=== PATIENT | female | born 1940 | race Caucasian/White ===

== ENCOUNTER → 2019-07-20 15:51 | Outpatient (BNVA) | payer MEDICARE, SELFPAY | PROVIDERS: Family Provider Nurse Practitioner; PCP Nurse Practitioner; Visit Provider Nurse Practitioner | DX: E83.52 Hypercalcemia (principal) | CPT/HCPCS: 80048 ==

== ENCOUNTER → 2019-11-15 15:41 | Outpatient (BNVA) | payer MEDICARE, SELFPAY | PROVIDERS: Family Provider Nurse Practitioner; PCP Nurse Practitioner; Visit Provider Nurse Practitioner | DX: I10 Essential (primary) hypertension (principal); F51.04 Psychophysiologic insomnia; E78.5 Hyperlipidemia, unspecified; Z12.39 Encounter for other screening for malignant neoplasm of breast; J30.1 Allergic rhinitis due to pollen | CPT/HCPCS: 80053; 80061 ==

== ENCOUNTER 2020-01-26 09:29 | Outpatient (CLI) | payer MEDICARE, SELFPAY ==
--- NOTE | 2020-01-26 09:00 | MM_ITS ---
WS: [id number] BILATERAL DIGITAL SCREENING MAMMOGRAPHY WITH CAD CLINICAL INFORMATION: screen HISTORY: Screening mammogram. No current complaints. COMPARISON: TECHNIQUE: Bilateral CC and MLO views. FINDINGS: Scattered fibroglandular densities bilaterally. No suspicious focal mass, asymmetry, calcifications, or architectural distortion. No evidence of malignancy. Vascular calcification. Punctate calcificatio ns. MM/[place] [id number] IMPRESSION: BI-RADS: 2-Benign FOLLOW UP: 1 Year Follow-up Recommend return to annual screening mammography.
== END 2020-01-26 09:30 | disposition home or self-care (01) ==
PROVIDERS: PCP Nurse Practitioner; Visit Provider Nurse Practitioner
DX: Z12.31 Encounter for screening mammogram for malignant neoplasm of breast (principal)
CPT/HCPCS: 77067

== ENCOUNTER → 2020-04-27 10:14 | Outpatient (BNVA) | payer MEDICARE, SELFPAY | PROVIDERS: PCP Nurse Practitioner; Visit Provider Nurse Practitioner | DX: I10 Essential (primary) hypertension (principal); F51.04 Psychophysiologic insomnia; E78.5 Hyperlipidemia, unspecified; M19.90 Unspecified osteoarthritis, unspecified site; J30.1 Allergic rhinitis due to pollen; Z23 Encounter for immunization; E83.52 Hypercalcemia | CPT/HCPCS: 80053; 80061; 82310; 83970; 84443 ==

== ENCOUNTER 2020-07-01 16:34 | Emergency (ER) | payer MEDICARE, SELFPAY ==
--- NOTE | 2020-07-01 16:44 | USR_ITS ---
PROCEDURE INFORMATION: Exam: US Duplex Left Lower Extremity Veins, Limited Exam date and time: 07/01/2020 4:46 PM Age: 79 years old Clinical indication: Swelling (edema) of limb; Lower extremity, left; Patient HX: H/o superficial thrombophlebitis TECHNIQUE: Imaging protocol: Real-time Duplex ultrasound of the Left Lower Extremity with 2-D richardson scale, color Doppler flow and spectral waveform analysis with image documentation. Limited exam focused on the left lower extremity veins. Total images: 38 COMPARISON: No relevant prior studies available. FINDINGS: Left deep veins: Examination reveals occlusive chronic deep venous thrombosis from the left greater saphenous vein and left common femoral vein distally to the trifurcation. Soft tissues: Unremarkable. US/CV venous duplex [facility] [id number] IMPRESSION: Examination reveals occlusive chronic deep venous thrombosis from the left greater saphenous vein and left common femoral vein distally to the trifurcation.
[2020-07-01 16:46] VITALS: BP 105/66; BP 128/68; PULSE 101; PULSE 82; RESP 14; RESP 16; TEMP 36.9; O2SAT 97; BMI 34.2
--- NOTE | 2020-07-01 16:47 | ED_ITS ---
HPI - Extremity Problem General: Chief complaint: Extremity Problem,Nontraumatic Stated complaint: left leg swelling Time Seen by Provider: 07/01/20 16:40 Source: patient Mode of arrival: ambulatory Limitations: no limitations History of Present Illness: HPI Narrative: 79-year-old female who states she has been having left leg swelling over the last 5 days. She states she has had superficial clots before but never DVT. She states she does have pain in that leg. Denies any fever. Patient denies any shortness of breath. She did get over Covid roughly 1 month ago. Denies any chest pain or vomiting or diarrhea. Denies any worsening improving factors. Associated symptoms: Deny chest pain, fever(s) or rash Review of Systems Const: Denies: fever(s), chills, body aches or change in appetite Eyes: Denies: blurry vision or eye discomfort ENMT: Denies: throat pain or dental pain Card: Denies: chest pain Resp: Denies: dyspnea GI: Denies: abdominal pain, nausea, vomiting or diarrhea : Denies: dysuria Musc: Reports: extremity swelling; Denies: neck pain or back pain Skin/Breast: Denies: rash Neuro: Denies: headache(s) Psych: Denies: depression Dileep/Lymph: Denies: easy bruising All/Imm: Denies: urticaria PFSH ED PFSH: Medical History (Updated 07/01/20 @ 17:33 by Lucian Nichols MD) HTN, goal below 130/80 Hyperlipidemia, unspecified Osteoarthropathy Surgical History History of back surgery Lumbar History of dilation and curettage History of knee surgery Right History of left breast biopsy History of surgery on left wrist ganglion cyst Family History Other Cancer Heart disease Hypertension Social History Smoking and tobacco status: never smoked Second hand smoke exposure: No Smoking risk assessment/counseling performed?: No Alcohol intake: never Desire information about alcohol rehabilitation?: No Counseling given: No Desire information about substance/drug rehabilitation?: No Counseling given: No Adopted: No Lives independently: Yes Household members: none Housing: House Marital status: / Current occupational status: retired History of recent travel: No Current gender identity: Female Physical Exam Const: COMMON NORMALS: no acute distress, patient oriented x3 and healthy appearing HENMT: COMMON NORMALS: normocephalic and atraumatic HEAD & SCALP: normocephalic and atraumatic Eye: COMMON NORMALS: Equal, round and reactive pupils present and EOMs intact bilaterally PUPIL: Yes Equal, round and reactive pupils present Neck/C-Spine: COMMON NORMALS: full ROM and supple Chest: COMMONS NORMALS: normal inspection of the chest and normal palpation of entire chest wall Resp: COMMON NORMALS: normal respiratory effort, No retractions, No use of accessory muscles and clear to auscultation bilaterally AUSCULTATION: clear to auscultation bilaterally Cardio: COMMON NORMALS: regular rate, regular rhythm and No murmurs present (Cardio) RATE: regular rate RHYTHM: regular rhythm GI: COMMON NORMALS: Normal to inspection, nondistended, normoactive bowel sounds present, Soft to palpation, non-tender and no masses PALPATION: Yes Soft to palpation Extremity: COMMON NORMALS: full ROM NARRATIVE EXTREMITY EXAM: Swelling to left lower calf distal pulses intact Neuro: COMMON NORMALS: patient oriented x3, moves all extremities and no focal motor deficits Psych: COMMON NORMALS: mental status grossly normal, Normal thought process present and cooperative THOUGHT PROCESS: Normal thought process present Skin: COMMON NORMALS: no rashes or lesions noted and no wounds GENERAL SKIN EXAM: no rashes or lesions noted Course Vital Signs: Vital signs: Vital Signs Temperature 98.5 F 07/01/20 16:46 Pulse Rate 81 07/01/20 17:39 Respiratory Rate 16 07/01/20 17:39 Blood Pressure 124/59 07/01/20 17:39 Pulse Oximetry 96 07/01/20 17:39 MDM - Extremity (Nontraumatic) MDM Narrative: Medical decision making narrative: Monie presents here swelling in her left leg. Ultrasound does show DVT. She has no shortness of breath and no signs of pulmonary embolism. Patient will be started on Eliquis and is to follow-up with primary care doctor in 3 to 5 days. She is to return if she has any chest pain shortness of breath or worsening symptoms of her leg. She understands and agrees to plan. Discharge Plan Discharge Patient Disposition: Home Clinical Impression: Deep vein thrombosis of lower extremity Qualifiers: Affected thrombotic vein of extremity: unspecified vein of extremity Chronicity: acute Laterality: left Qualified Code(s): I82.402 - Acute embolism and thrombosis of unspecified deep veins of left lower extremity Condition: Stable Prescriptions: New Eliquis 5 mg tablet 10 mg PO BID 7 Days Qty: 28 RF: 0 Eliquis 5 mg tablet 5 mg PO BID Qty: 30 RF: 0 No Action amlodipine 5 mg tablet 5 mg PO QDAY Qty: 90 RF: 0 citalopram [Celexa] 10 mg tablet 10 mg PO DAILY Qty: 90 RF: 0 furosemide 20 mg tablet 20 mg PO QAM Qty: 90 RF: 0 lisinopril 20 mg tablet 20 mg PO DAILY Qty: 90 RF: 0 lovastatin 10 mg tablet 10 mg PO DAILY Qty: 90 RF: 0 meloxicam 15 mg tablet 15 mg PO DAILY Qty: 90 RF: 0 montelukast [Singulair] 10 mg tablet 10 mg PO DAILY Qty: 90 RF: 0 Discharge Orders: Discharge ED (Routine); Ordered 07/01/20 Ordered By: Lucian Nichols Referrals: Eber Proctor, SKILL TRAINING PROGRAM COORDINATOR-C [Primary Care Provider] - 1-3 days Discharge Diet: Advance as tolerated Discharge Activity: Resume usual activity Patient Instructions: Deep Venous Thrombosis (ED) Coding Level of Care Code ED Ultimate Hoops Referee for Tho Fwtee Exam Comprehensive
[2020-07-01 17:39] VITALS: BP 124/59; PULSE 81; RESP 16; O2SAT 96
== END 2020-07-01 18:18 | disposition home or self-care (01) ==
PROVIDERS: Emergency Provider Emergency Medicine; PCP Nurse Practitioner
DX: I82.402 Acute embolism and thrombosis of unspecified deep veins of left lower extremity (principal); I10 Essential (primary) hypertension; E78.5 Hyperlipidemia, unspecified
CPT/HCPCS: 12345; 93971; 99281; 99282

== ENCOUNTER → 2020-07-10 16:32 | Outpatient (BNVA) | payer MEDICARE, SELFPAY | PROVIDERS: PCP Nurse Practitioner; Visit Provider Nurse Practitioner | DX: I82.412 Acute embolism and thrombosis of left femoral vein (principal) | CPT/HCPCS: 80053; 85025 ==

== ENCOUNTER → 2020-08-14 11:06 | Outpatient (BNVA) | payer MEDICARE, SELFPAY | PROVIDERS: PCP Nurse Practitioner; Visit Provider Nurse Practitioner | DX: D64.9 Anemia, unspecified (principal) | CPT/HCPCS: 85025 ==

== ENCOUNTER 2020-08-28 10:42 | Outpatient (CLI) | payer MEDICARE, SELFPAY ==
--- NOTE | 2020-08-28 10:30 | USCV_ITS ---
Monie Newton Age: 80 Gender: F : 1940 Exam Date: 08/28/2020 11:14 Ordering Phys: Eber Proctor Technologist: Ya Blevins Exam Location: [facility] – [place] Indication: LLE PAIN AND SWELLING HISTORY: Lower extremity swelling. Lower extremity pain. History of deep venous thrombosis. PROCEDURES: Venous duplex imaging was performed in only the left lower extremity. The following venous structures were evaluated: common femoral vein, profunda vein, proximal portion of the greater saphenous vein, superficial femoral vein, and the popliteal vein. In addition, the posterior tibial veins were evaluated. Serial compression, augmentation maneuvers, and spectral Doppler flow evaluation were performed. FINDINGS: + DVT SEEN FROM LEFT CFV TO POP V EDEMA SEEN IN LOWER LEG CONCLUSIONS DVT left common femoral vein to popliteal vein. This is similiar in appearance to 06/2020 Edema left lower leg Gumaro Hart MD (Electronically Signed) Final Date: 28 August 2020 11:48 S
--- NOTE | 2020-08-28 11:15 | XR_ITS ---
WS: [id number] Exam: XR knee LT 3V* [id number] Date/Time of Exam: 08/28/2020 11:15 AM Reason For Exam: I82.412 - Acute embolism and thrombosis of left femoral vein No fracture or dislocation. Mild degenerative change of the medial joint compartment and posterior pa tella. Moderate effusion in the suprapatellar bursa. XR/XR knee LT 3V* [id number] IMPRESSION: 1. No fracture noted. 2. Mild degenerative changes. 3. Joint effusion.
[2020-08-28 12:07] LABS: Uric Acid 4.1 mg/dL (2.4-5.7)
== END 2020-08-28 10:43 | disposition home or self-care (01) ==
LOC: RAD 10:47
PROVIDERS: PCP Nurse Practitioner; Visit Provider Nurse Practitioner
DX: I82.412 Acute embolism and thrombosis of left femoral vein (principal); M25.562 Pain in left knee; M10.9 Gout, unspecified; M25.462 Effusion, left knee; M79.89 Other specified soft tissue disorders; M79.605 Pain in left leg; I82.432 Acute embolism and thrombosis of left popliteal vein
CPT/HCPCS: 73562; 84550; 93971

== ENCOUNTER → 2020-11-28 08:20 | Outpatient (BNVA) | payer MEDICARE, SELFPAY | PROVIDERS: PCP Nurse Practitioner; Visit Provider Nurse Practitioner | DX: I10 Essential (primary) hypertension (principal); E78.5 Hyperlipidemia, unspecified; Z79.899 Other long term (current) drug therapy | CPT/HCPCS: 80053; 85025 ==

== ENCOUNTER → 2021-02-01 08:43 | Outpatient (BNVA) | payer MEDICARE, SELFPAY | PROVIDERS: PCP Nurse Practitioner; Visit Provider Nurse Practitioner | DX: E55.9 Vitamin D deficiency, unspecified (principal); I10 Essential (primary) hypertension | CPT/HCPCS: 80053; 82306; 84443 ==

== ENCOUNTER 2021-02-05 09:22 | Outpatient (CLI) | payer MEDICARE, SELFPAY ==
--- NOTE | 2021-02-05 09:32 | MM_ITS ---
WS: [id number] Bilateral screening digital mammogram, 02/05/2021 Clinical Data: SCREENING Comparison: 01/26/2020, 04/13/2018, 02/27/2017, 03/02/2014, 12/11/2011, 09/19/2009, 09/02/2007, 01/18/2007, . Findings: The breast parenchymal pattern shows fibroglandular tissue No spiculated masses or clustered calcific ations are seen. There are no secondary signs of carcinoma. MM/[place] [id number] Impression: 1. Negative bilateral mammogram unchanged. 2. Recommend annual screening mammograms. BIRADS: 1-Negative FOLLOW UP: 1 Year Follow-up The CAD content checker was used.
--- NOTE | 2021-02-05 10:12 | USCV_ITS ---
Monie Newton Age: 80 Gender: F : 1940 Exam Date: 02/05/2021 10:32 Ordering Phys: Eber Proctor Technologist: Shyla Barton Exam Location: [facility] [place] Indication: ACUTE THROMBUS HISTORY: Lower extremity edema. DVT. PROCEDURES: Comparison:. 08/28/20, 07/01/20. Venous duplex imaging was performed in bilateral lower extremities. The following venous structures were evaluated: common femoral vein, profunda vein, proximal portion of the greater saphenous vein, superficial femoral vein, and the popliteal vein. In addition, the posterior tibial and peroneal trunk were evaluated. FINDINGS: The left CFV and left profunda through popliteal still appears to have thrombus present. Complete occlusion of the vein, unchanged. Residual clot in left GSV. All other veins appear free of thrombus at this time. No right DVT. CONCLUSIONS No change in left lower extremity DVT over several exams. No progression or improvement. No DVT right lower extremity. Dr. Evelyne Perez DO (Electronically Signed) Final Date: 05 February 2021 10:54 S
== END 2021-02-05 09:23 | disposition home or self-care (01) ==
PROVIDERS: PCP Nurse Practitioner; Visit Provider Nurse Practitioner
DX: Z12.31 Encounter for screening mammogram for malignant neoplasm of breast (principal); I82.412 Acute embolism and thrombosis of left femoral vein
CPT/HCPCS: 77067; 93970

== ENCOUNTER 2021-03-07 17:57 | Outpatient (CLI) | payer MEDICARE, SELFPAY | END 2021-03-07 17:58 | disposition home or self-care (01) | PROVIDERS: PCP Nurse Practitioner; Visit Provider Nurse Practitioner | DX: D64.9 Anemia, unspecified (principal) | CPT/HCPCS: 80053; 84443; 85025; 86850; 86900; 86920 ==

== ENCOUNTER → 2021-03-08 09:37 | Day surgery (SDC) | payer MEDICARE, SELFPAY ==
[2021-03-08] VITALS (10 sets, daily range): BP systolic 114–154; BP diastolic 59–96; PULSE 66–130; RESP 18; TEMP 35.8–36.5; O2SAT 96–100; BMI 33.9
--- NOTE | 2021-03-08 11:12 | PC.NURSE ---
Blood was taken back to lab when I was unable to document in the TAR. After issue was resolved and I was able to document Varun went to lab to retrieve the blood a second time.
[2021-03-08] MEDS: sodium chloride 0.9% (100 ml) 100 ML 10 ML ×2 (12:45→12:57)
== END ==
PROVIDERS: PCP Nurse Practitioner; Visit Provider Nurse Practitioner
DX: D64.9 Anemia, unspecified (principal)
CPT/HCPCS: 36430; 86850; 86900; 86920; J2704; P9016

== ENCOUNTER → 2021-03-13 15:39 | Outpatient (BNVA) | payer MEDICARE, SELFPAY | PROVIDERS: PCP Nurse Practitioner; Visit Provider Nurse Practitioner | DX: D64.9 Anemia, unspecified (principal) | CPT/HCPCS: 85025 ==

== ENCOUNTER → 2021-03-18 16:01 | Outpatient (BNVA) | payer MEDICARE, SELFPAY | PROVIDERS: PCP Nurse Practitioner; Visit Provider Nurse Practitioner | DX: D64.9 Anemia, unspecified (principal) | CPT/HCPCS: 85025 ==

== ENCOUNTER → 2021-03-22 10:00 | Outpatient (BNVA) | payer MEDICARE, SELFPAY | PROVIDERS: PCP Nurse Practitioner; Visit Provider Surgery | DX: Z20.822 Contact with and (suspected) exposure to COVID-19 (principal); D64.9 Anemia, unspecified; K92.1 Melena | CPT/HCPCS: 87635 ==

== ENCOUNTER 2021-03-27 07:42 | Day surgery (SDC) | payer MEDICARE, SELFPAY ==
[2021-03-27 08:23] VITALS: BP 138/63; PULSE 88; RESP 18; TEMP 36.2; O2SAT 100
[2021-03-27 08:28] VITALS: BMI 33.9
--- NOTE | 2021-03-27 08:31 | ANES.PREANE2 ---
Pre-Anesthetic Assessment Pre-Anesthetic Assessment: Height/Weight: Height 1.68 m Temp Pulse Resp BP Pulse Ox 97.2 F L 88 18 138/63 100 03/27/21 08:23 03/27/21 08:23 03/27/21 08:23 03/27/21 08:23 03/27/21 08:23 Preop Diagnosis: Anemia associated with black stool Proposed Procedure: Operation Date: 03/27/21 09:00 Proposed Procedures p EGD/colon 19484 20457 D64.9 K92.1(Not Applicable) - Saul Craft MD s Colonoscopy(Not Applicable) - Saul Craft MD Was Beta Syed taken within 24 hours: Yes Was Clonidine taken within 24 hours: N/A Social: Social History: No alcohol and No tobacco Exam: Pre-Anes Outpt Exam: alert, oriented x 3, clear to auscultation bilaterally and regular rate & rhythm Airway: Submandibular: WNL Cervical ROM: WNL MP: 2 Dentition: False CV/HEM: CV/HEM: Anemia, Arrythmia and HTN Metabolic: Metabolic: Hyperlipidemia Musc/skel: Musc/skel: OA/DJD Anesthetic Plan: ASA status: 3 Anesthesia: MAC Risk of > 500 ml blood loss (7ml/kg in children): No PFSH Anesthesia PFSH: Medical History HTN, goal below 130/80 Hyperlipidemia, unspecified Osteoarthropathy Surgical History History of back surgery Lumbar History of dilation and curettage History of knee surgery Right History of left breast biopsy History of surgery on left wrist ganglion cyst Family History Other Cancer Heart disease Hypertension Social History Second hand smoke exposure: No Smoking risk assessment/counseling performed?: No Alcohol intake: never Desire information about alcohol rehabilitation?: No Counseling given: No Desire information about substance/drug rehabilitation?: No Counseling given: No Adopted: No Caregiver/support person: No Lives independently: Yes Household members: none Housing: House Marital status: / Current occupational status: retired Current occupational exposures/hazards: No History of recent travel: No Current gender identity: Female Data Anesthesia Cardiac Studies: No Data to Display
[2021-03-27] MEDS: sodium chloride 0.9% 1,000 ML 30 ML IV (08:38)
--- NOTE | 2021-03-27 09:18 | W.PM.OPSUD ---
Surgery/Procedure H&P Update DATE OF PROCEDURE: March 27, 2021 DATE H&P PERFORMED: 03/21/21 H&P UPDATE INFORMATION: I have reviewed H&P completed within last 30 days, I have examined patient prior to procedure and No changes to prior documentation PREOP DIAGNOSIS: Anemia associated with black stool PRIMARY INDICATION FOR PROCEDURE: The same PLANNED PROCEDURE: Operation Date: 03/27/21 09:00 Proposed Procedures p EGD/colon 63298 08339 D64.9 K92.1(Not Applicable) - Saul Craft MD s Colonoscopy(Not Applicable) - Saul Craft MD
[2021-03-27] MEDS: EPINEPHrine 1 mg/mL INJ XX (09:45)
[2021-03-27 09:58] VITALS: BP 109/59; PULSE 77; RESP 18; TEMP 36.3; O2SAT 95
--- NOTE | 2021-03-27 10:01 | PM.PACU ---
PACU note Post-Anesthesia Exam: awake and vital signs stable Disposition: discharged
[2021-03-27] MEDS: ondansetron 2 mg/ML SDV 2 mL 4 MG IVP (10:09)
[2021-03-27 10:10] VITALS: BP 123/78; PULSE 78; RESP 18; O2SAT 99
[2021-03-27 10:19] VITALS: BP 123/78; PULSE 62; RESP 16; O2SAT 100
--- NOTE | 2021-03-27 10:21 | PC.NURSE ---
Addendum entered by Glenny Montenegro RN 03/27/21 10:33: Pt and family given verbal education and written packet regarding new meds, protonix and carafate. Original Note: Pt c/o nausea post-procedure. Given zofran 4 mg ivp. States relief.
--- NOTE | 2021-03-27 13:53 | ANE.PACU2 ---
Inpatient post-anesthesia follow up: Airway intact: Yes Vital signs: Temperature 97.4 F Pulse Rate 62 Respiratory Rate 16 Blood Pressure 123/78 Pulse Oximetry 100 Oxygen Delivery Me thod Room Air Oxygen Flow Rate Fraction of Inspir ed Oxygen Hydration adequate: Yes Nausea and vomiting: No Pain level: 1 Mental status: Baseline
[2021-03-28 10:47] LABS: H. Pylori / CLO Test Negative
== END 2021-03-27 10:45 | disposition home or self-care (01) ==
PROVIDERS: PCP Nurse Practitioner; Visit Provider Surgery
PROC: 0DJ08ZZ Inspection of Upper Intestinal Tract, Via Natural or Artificial Opening Endoscopic (ICD-10-PCS; CPT 43235; principal; 2021-03-27 09:00)
PROC: 0DJD8ZZ Inspection of Lower Intestinal Tract, Via Natural or Artificial Opening Endoscopic (ICD-10-PCS; CPT 45378; 2021-03-27 09:00)
DX: D64.9 Anemia, unspecified (principal); K92.1 Melena; K64.4 Residual hemorrhoidal skin tags; K21.00 Gastro-esophageal reflux disease with esophagitis, without bleeding; K29.70 Gastritis, unspecified, without bleeding; K25.3 Acute gastric ulcer without hemorrhage or perforation; I10 Essential (primary) hypertension; E78.5 Hyperlipidemia, unspecified; M19.90 Unspecified osteoarthritis, unspecified site
CPT/HCPCS: 43236; 43239; 45378; 87077; 96361; 96374; J0171; J2405; J7030

== ENCOUNTER → 2021-05-17 11:40 | Outpatient (BNVA) | payer MEDICARE, SELFPAY | PROVIDERS: PCP Nurse Practitioner; Visit Provider Surgery | DX: Z01.812 Encounter for preprocedural laboratory examination (principal); Z20.822 Contact with and (suspected) exposure to COVID-19 | CPT/HCPCS: 87635 ==

== ENCOUNTER 2021-05-22 07:50 | Day surgery (SDC) | payer MEDICARE, SELFPAY ==
[2021-05-20 13:53] VITALS: BMI 43.5
--- NOTE | 2021-05-22 08:24 | ANES.PREANE2 ---
Pre-Anesthetic Assessment Pre-Anesthetic Assessment: Height/Weight: Height 1.68 m Weight 122.47 kg Preop Diagnosis: Gastric ulcerS Proposed Procedure: Operation Date: 05/22/21 09:00 Proposed Procedures p EGD 36316 K22.10(Not Applicable) - Saul Craft MD Was Beta Syed taken within 24 hours: Yes Was Clonidine taken within 24 hours: N/A Social: Social History: No alcohol and No tobacco Exam: Pre-Anes Outpt Exam: alert, oriented x 3, clear to auscultation bilaterally and regular rate & rhythm Airway: Submandibular: WNL Cervical ROM: WNL MP: 2 Dentition: False (upper) Pulmonary: Pulmonary: Asthma CV/HEM: CV/HEM: Anemia, Arrythmia and HTN GI: GI: GERD Neuropsych: Neuropsych: Anxiety Anesthetic Plan: ASA status: 3 Anesthesia: MAC Risk of > 500 ml blood loss (7ml/kg in children): No PFSH Anesthesia PFSH: Medical History HTN, goal below 130/80 Hyperlipidemia, unspecified Osteoarthropathy Surgical History History of back surgery Lumbar History of dilation and curettage History of knee surgery Right History of left breast biopsy History of surgery on left wrist ganglion cyst Family History Other Cancer Heart disease Hypertension Social History Second hand smoke exposure: No Smoking risk assessment/counseling performed?: No Alcohol intake: never Desire information about alcohol rehabilitation?: No Counseling given: No Desire information about substance/drug rehabilitation?: No Counseling given: No Adopted: No Caregiver/support person: No Lives independently: Yes Household members: none Housing: House Marital status: / Current occupational status: retired Current occupational exposures/hazards: No History of recent travel: No Current gender identity: Female Data Anesthesia Cardiac Studies: No Data to Display
[2021-05-22 08:26] VITALS: BP 144/84; PULSE 77; RESP 16; TEMP 36.5; O2SAT 99
[2021-05-22] MEDS: sodium chloride 0.9% 1,000 ML 30 ML IV (08:38)
--- NOTE | 2021-05-22 09:30 | W.PM.OPSFHP ---
Same Day Surgery H&P Indication for Procedure/HPI DATE OF PROCEDURE: May 22, 2021 CHIEF COMPLAINT/INDICATIONFOR SURGICAL PROCEDURE: I am here for endoscopy PREOP DIAGNOSIS: Gastric ulcerS PLANNED PROCEDRUE: Operation Date: 05/22/21 09:00 Proposed Procedures p EGD 73127 K22.10(Not Applicable) - Saul Craft MD 04/11/2021 Patient comes today status post EGD and was found to have gastritis and prepyloric gastric ulcers x3. Colonoscopy showed external hemorrhoids. Patient was placed on PPI therapy and Carafate. Patient expresses her concerns to be on chronic anticoagulation. She denies any abdominal pain or bleeding per rectum Interim history 05/22/2021 Patient comes today for repeat diagnostic EGD ROS All systems have been reviewed negative except as per the above or per problem list Medications/Allergies* Home Medications Medication Instructions Recorded Confirmed Type aspirin 81 mg PO DAILY 05/20/21 05/22/21 History Toprol XL 50 mg PO BEDTIME 05/21/21 05/21/21 History alprazolam 0.5 mg PO BID PRN 05/21/21 05/22/21 History lovastatin 10 mg PO BEDTIME 05/21/21 05/22/21 History montelukast [Singulair] 10 mg PO BEDTIME 05/21/21 05/22/21 History olmesartan 20 mg PO DAILY 05/21/21 05/22/21 History Allergies/Adverse Reactions Allergy/AdvReac Type Severity Reaction Status Date / Time pseudoephedrine AdvReac Severe palpation Verified 05/22/21 09:31 Penicillins AdvReac Intermediate heart races Verified 05/22/21 09:31 Current Medications: Generic Name Dose Route Start Last Admin Trade Name Freq PRN Reason Stop Dose Admin Sodium Chloride 1,000 mls @ 30 mls/hr 05/22/21 08:15 05/22/21 08:38 Sodium Chloride 0.9% IV 05/23/21 08:14 30 mls/hr .Q24H SARAH Administration Pertinent History/Comorbid Conditions* Medical History (Updated 03/27/21 @ 10:08 by Saul Craft MD) HTN, goal below 130/80 Hyperlipidemia, unspecified Osteoarthropathy Surgical History (Updated 11/15/19 @ 15:29 by BENJAMIN Valerio) History of back surgery Lumbar History of dilation and curettage History of knee surgery Right History of left breast biopsy History of surgery on left wrist ganglion cyst Family History (Updated 11/14/19 @ 10:50 by DWAYNE Chaudhary) Heart disease Cancer Hypertension Social History Second hand smoke exposure: No Smoking risk assessment/counseling performed?: No Alcohol intake: never Desire information about alcohol rehabilitation?: No Counseling given: No Desire information about substance/drug rehabilitation?: No Counseling given: No Adopted: No Caregiver/support person: No Lives independently: Yes Household members: none Housing: House Marital status: / Current occupational status: retired Current occupational exposures/hazards: No History of recent travel: No Current gender identity: Female Pertinent Exam Findings alert, oriented x 3, regular rate & rhythm and procedure specific exam findings (Abdominal examination nontender nondistended soft) Recommendations Surgery/Procedure today (Diagnostic EGD with possible biopsy) Coding Level of Care Code Acute Copier Repair Technician for Tho Kelly
[2021-05-22 09:51] VITALS: BP 111/75; PULSE 75; RESP 16; TEMP 36.1; O2SAT 94
--- NOTE | 2021-05-22 09:53 | ANE.PACU2 ---
Inpatient post-anesthesia follow up: Airway intact: Yes Vital signs: Temperature 97.7 F Pulse Rate 77 Respiratory Rate 16 Blood Pressure 144/84 Pulse Oximetry 99 Oxygen Delivery Me thod Room Air Oxygen Flow Rate Fraction of Inspir ed Oxygen Hydration adequate: Yes Nausea and vomiting: No Pain level: 1 Mental status: Baseline
[2021-05-22 10:05] VITALS: BP 126/78; PULSE 66; RESP 18; O2SAT 96
== END 2021-05-22 10:15 | disposition home or self-care (01) ==
PROVIDERS: PCP Nurse Practitioner; Visit Provider Surgery
PROC: 0DJ08ZZ Inspection of Upper Intestinal Tract, Via Natural or Artificial Opening Endoscopic (ICD-10-PCS; CPT 43235; principal; 2021-05-22 09:00)
DX: K25.9 Gastric ulcer, unspecified as acute or chronic, without hemorrhage or perforation (principal); K21.00 Gastro-esophageal reflux disease with esophagitis, without bleeding; I10 Essential (primary) hypertension; Z88.0 Allergy status to penicillin
CPT/HCPCS: 43235; 96360; J2704; J7030

== ENCOUNTER → 2021-07-10 08:24 | Day surgery (SDC) | payer MEDICARE, SELFPAY | PROVIDERS: PCP Nurse Practitioner Family; Visit Provider Thoracic Surgery (Cardiothoracic Vascular Surgery) | DX: Z01.818 Encounter for other preprocedural examination (principal) | CPT/HCPCS: 93005 ==

== ENCOUNTER → 2021-07-10 10:20 | Outpatient (BNVA) | payer MEDICARE, SELFPAY | PROVIDERS: PCP Nurse Practitioner Family; Visit Provider Thoracic Surgery (Cardiothoracic Vascular Surgery) | DX: Z20.822 Contact with and (suspected) exposure to COVID-19 (principal); I82.412 Acute embolism and thrombosis of left femoral vein | CPT/HCPCS: 87635 ==

== ENCOUNTER 2021-07-16 06:07 | Day surgery (SDC) | payer MEDICARE, SELFPAY ==
[2021-07-10 09:00] VITALS: BMI 33.0
--- NOTE | 2021-07-10 09:26 | ECG_ITS ---
[facility] Test Date: 2021-07-10 Pat Name: Monie Newton Department: Room: Gender: Female Pharmacology Professor: : 1940 Requested By: Eliseo Echevarria Order Number: [id number] Sabine MD: Sonia Zavaleta M.D. Measurements Intervals Organ Rate: 62 P: 36 VA: 197 QRS: -14 QRSD: 83 T: 43 QT: 397 QTc: 404 Interpretive Statements SINUS RHYTHM LOW QRS VOLTAGE IN PRECORDIAL LEADS [QRS DEFLECTION < 1.0 mV IN CHEST LEADS] MODERATE VOLTAGE CRITERIA FOR LVH, CONSIDER NORMAL VARIANT [MEETS CRITERIA IN ONE OF: R(aVL), S(V1), R(V5), R(V5/V6)+S(V1)] POSSIBLE ANTERIOR MYOCARDIAL INFARCTION , OF INDETERMINATE AGE [30 ms Q WAVE IN V3/V4, OR R < 0.2 mV IN V4] No previous ECG available for comparison Electronically Signed On 07-11-2021 22:04:32 GUEST SERVICE MANAGER by Sonia Zavaleta M.D. [email or web address]
[2021-07-10 09:33] LABS: Add Urine Microscopic? NO; Charge for UA Resulting for Rev
[2021-07-10 09:35] LABS: Basophils # 0.1 10^3/uL (0.0-0.1); Basophils % 1.2 %; Eosinophils # 0.1 10^3/uL (0.0-0.8); Eosinophils % 2.2 %; Hematocrit 40.5 % (37.0-47.0); Hemoglobin 12.8 g/dL (11.5-15.3); Lymphocytes % 33.7 %; Mean Corpuscular HGB Conc 31.6 g/dL (30.0-36.0); Mean Corpuscular Volume 91.8 fl (81-99); Mean Platelet Volume 10.9 fL (7.4-10.4); Monocytes # 0.6 10^3/uL (0.2-0.9); Monocytes % 9.2 %; Neutrophils % 53.5 %; Nucleated Red Blood Cells % 0 %; Platelet Count 256 10^3/cmm (130-400); Red Blood Count 4.41 10^6/uL (4.1-5.3); Red Cell Distribution Width 13.5 % (12.1-15.1)
[2021-07-10 09:37] LABS: Bilirubin Urine Neg (Negative); Blood Urine Neg (Negative); Glucose Urine UA Norm (Normal); Ketones Urine Negative (Negative); Leukocyte Esterase Urine Negative (Negative); Nitrate Urine Negative (Negative); Protein Urine Neg (Negative); Specific Gravity, Urine 1.005 (1.005-1.030); Urine Appearance Clear (CLEAR); Urine Color Yellow (Yellow); Urobilinogen Urine Norm (Negative); pH Urine 7 (5-7)
[2021-07-10 09:59] LABS: INR 0.94 (0.8-1.2)
[2021-07-10 10:06] LABS: Anion Gap 16.2 (5-19); Blood Urea Nitrogen 15 mg/dL (8-23); Calcium 9.4 mg/dL (8.5-10.5); Carbon Dioxide 24 mmol/L (22-29); Chloride 101 mmol/L (98-107); Glucose 77 mg/dL (65-115); Osmolality Calculated 284 mOsm/kg (285-295); Potassium 4.2 mmol/L (3.5-5.1); Sodium 137 mmol/L (136-145)
--- NOTE | 2021-07-10 11:25 | ANES.PREANE2 ---
Pre-Anesthetic Assessment Pre-Anesthetic Assessment: Height/Weight: Height 1.68 m Weight 92.986 kg Preop Diagnosis: recurrent left lower extremity DVT Proposed Procedure: Operation Date: 07/16/21 07:00 Proposed Procedures p Vena Cava Filter Insertion(Not Applicable) - Warner Ramirez MD Operation Date: 07/16/21 07:00 Proposed Procedures p IVC Filter Insertion(Not Applicable) - Warner Ramirez MD Familial anesthetic complications: None Was Beta Syed taken within 24 hours: Yes Was Clonidine taken within 24 hours: N/A Social: Social History: No alcohol and No tobacco Exam: Pre-Anes Outpt Exam: alert, oriented x 3, clear to auscultation bilaterally and regular rate & rhythm Airway: Submandibular: WNL Cervical ROM: WNL MP: 2 Additional comments: Upper dentures History/ROS: No significant complaints Pulmonary: Pulmonary: None reported CV/HEM: CV/HEM: DVT (Persistent (over 1 year) left common femoral and profunda femoral veins extending to popliteal - per patient associated with reduced mobility surrouning COVID 19 infection) and HTN Comments: DLD Hx of anemia resolved METs > 4 : : None reported Comments: Elevated creatinine Hepatic: Hepatic: None reported GI: Comments: GI bleed when on anticoagulant for DVT now off anticoagulant Gastritis Metabolic: Metabolic: None reported Musc/skel: Musc/skel: OA/DJD Neuropsych: Neuropsych: None reported Comments: Insomnia Anesthetic Plan: ASA status: 3 (80 year old female with persistent large DVT in lower extremity intolerant of anticoagulant due to GI bleed requiring blood transfusion. ) Anesthesia: General and MAC Other: We discussed MAC and general anesthesia as well as the risk and benefits of each including risk of stroke, [place], , ICU admission, PE, allergic reaction, peripheral nerve injury, sore throat. We discussed that on day of surgery a decision of MAC vs general will be decided. Regarding MAC we discussed the spectrum of anesthesia and the possibility of intraoperative recall of stimuli and or pain/discomfort. Patient agrees to MAC or general anesthesia pending further planning and discussion with the surgeon. Risk of > 500 ml blood loss (7ml/kg in children): No PFSH Anesthesia PFSH: Medical History Black stool Gastric cardia ulcer Gastritis HTN, goal below 130/80 Hyperlipidemia, unspecified Osteoarthropathy Surgical History History of back surgery Lumbar History of dilation and curettage History of knee surgery Right History of left breast biopsy History of surgery on left wrist ganglion cyst Family History Other Cancer Heart disease Hypertension Social History Second hand smoke exposure: No Smoking risk assessment/counseling performed?: No Alcohol intake: never Desire information about alcohol rehabilitation?: No Counseling given: No Desire information about substance/drug rehabilitation?: No Counseling given: No Adopted: No Caregiver/support person: No Lives independently: Yes Household members: none Housing: House Marital status: / Current occupational status: retired Current occupational exposures/hazards: No History of recent travel: No Current gender identity: Female Data Anesthesia CBC & Chem 7: 07/10/21 09:10 07/10/21 09:10 Other Labs: Laboratory Results - last 48 hr 07/10/21 07/10/21 07/10/21 09:10 09:10 09:10 WBC 6.0 RBC 4.41 Hgb 12.8 Hct 40.5 MCV 91.8 MCH 29.0 MCHC 31.6 RDW 13.5 Plt Count 256 MPV 10.9 H Neut % (Auto) 53.5 Lymph % (Auto) 33.7 [place] % (Auto) 9.2 Eos % (Auto) 2.2 Baso % (Auto) 1.2 Neut # (Auto) 3.20 Lymph # (Auto) 2.0 [place] # (Auto) 0.6 Eos # (Auto) 0.1 Baso # (Auto) 0.1 Nucleated RBC % (auto) 0 Nucleated RBCs # 0.0 PT 12.80 INR 0.94 Sodium 137 Potassium 4.2 Chloride 101 Carbon Dioxide 24 Anion Gap 16.2 BUN 15 Creatinine 1.0 H GFR Calculation Not Reportable Glucose 77 Calculated Osmolality 284 L Calcium 9.4 Urine Color Urine Appearance Urine pH Ur Specific [place] Urine Protein Urine Glucose (UA) Urine Ketones Urine Blood Urine Nitrate Urine Bilirubin Urine Urobilinogen Ur Leukocyte Esterase 07/10/21 09:15 WBC RBC Hgb Hct MCV MCH MCHC RDW Plt Count MPV Neut % (Auto) Lymph % (Auto) [place] % (Auto) Eos % (Auto) Baso % (Auto) Neut # (Auto) Lymph # (Auto) [place] # (Auto) Eos # (Auto) Baso # (Auto) Nucleated RBC % (auto) Nucleated RBCs # PT INR Sodium Potassium Chloride Carbon Dioxide Anion Gap BUN Creatinine GFR Calculation Glucose Calculated Osmolality Calcium Urine Color Yellow Urine Appearance Clear Urine pH 7 Ur Specific [place] 1.005 Urine Protein Neg Urine Glucose (UA) Norm Urine Ketones Negative Urine Blood Neg Urine Nitrate Negative Urine Bilirubin Neg Urine Urobilinogen Norm Ur Leukocyte Esterase Negative Cardiac Studies: No Data to Display
--- NOTE | 2021-07-16 | SCC_ITS ---
Procedure Done: Inferior vena cava filter placement 96.6 seconds of fluoroscopic guidance, for a cumulative dose of 24.00mGy, was provided to Dr. [place] by the radiology department. C-arm images of the abdomen were saved for the patient's permanent record. [facility]
--- NOTE | 2021-07-16 06:22 | P.HP_ITS ---
Providers/Chief Complaint Primary Care Provider: Salma Hare APN Chief Complaint: . History of Present Illness Monie Newton is a very pleasant 80 year old female who presents today for planned IVC filter placement. I saw her in consultation in my clinic back on June 13. She has a history of lower GI hemorrhage and recurrent left lower extremity DVT, thereby being intolerant to anticoagulants. She has previously required a 2 unit transfusion earlier last year due to the GI hemorrhage. Left lower extremity chronic DVT involves the left common femoral vein and left profunda femoral vein and extends down to the popliteal vein. There also remains residual clot in the left greater saphenous vein. She did have COVID-19 pneumonia in June 2020. She has been intolerant to both Eliquis and Xarelto due to GI hemorrhage. She is currently been maintained on 81 mg aspirin. Due to the extensive nature of the DVT and its chronicity, IVC filter placement has been requested. ED last year by Dr. Craft revealed gastritis and prepyloric gastric ulcers x3. Colonoscopy only revealed external hemorrhoids. Review of Systems Eyes: Reports: blurry vision Card: Reports: palpitations and swelling of feet/ankles; Denies: chest pain Resp: Denies: dyspnea, productive cough or hemoptysis GI: Denies: abdominal pain, nausea, vomiting or hematemesis Musc: Reports: neck pain Neuro: Reports: headache(s) Psych: Denies: anxiety or depression Medications/Allergies Home Medications Medication Instructions Recorded Confirmed Last Taken Type furosemide 20 mg tablet 20 mg PO QAM #90 tab 02/07/21 07/16/21 07/15/21 Rx aspirin 81 mg PO DAILY 05/20/21 07/16/21 07/15/21 History alprazolam 0.5 mg PO BID PRN 05/21/21 07/16/21 07/15/21 History lovastatin 10 mg PO BEDTIME 05/21/21 07/16/21 07/15/21 History metoprolol succinate [Toprol XL] 50 mg PO BEDTIME 05/21/21 07/16/21 07/15/21 History montelukast [Singulair] 10 mg PO BEDTIME 05/21/21 07/16/21 07/15/21 History olmesartan 20 mg PO DAILY 05/21/21 07/16/21 07/15/21 History loratadine 10 mg tablet 10 mg PO DAILY 06/06/21 07/16/21 07/15/21 History pantoprazole 40 mg tablet,delayed 40 mg PO DAILY 30 Days #30 tab 06/10/21 07/16/21 07/15/21 Rx release sucralfate 1 gram tablet 1 g PO TID 84 Days #252 tab 06/10/21 07/16/21 07/15/21 Rx fluticasone propionate 50 1 spray INTRANASAL DAILY 06/13/21 07/16/21 07/15/21 History mcg/actuation nasal spray,suspension Allergies Allergy/AdvReac Type Severity Reaction Status Date / Time pseudoephedrine AdvReac Severe palpation Verified 06/13/21 10:29 Penicillins AdvReac Intermediate heart races Verified 06/13/21 10:29 PFSH Acute PFSH: Medical History Black stool Gastric cardia ulcer Gastritis HTN, goal below 130/80 Hyperlipidemia, unspecified Osteoarthropathy Surgical History History of back surgery Lumbar History of dilation and curettage History of knee surgery Right History of left breast biopsy History of surgery on left wrist ganglion cyst Family History Other Cancer Heart disease Hypertension Social History Second hand smoke exposure: No Smoking risk assessment/counseling performed?: No Alcohol intake: never Desire information about alcohol rehabilitation?: No Counseling given: No Desire information about substance/drug rehabilitation?: No Counseling given: No Adopted: No Caregiver/support person: No Lives independently: Yes Household members: none Housing: House Marital status: / Current occupational status: retired Current occupational exposures/hazards: No History of recent travel: No Current gender identity: Female Physical Exam HENMT: COMMON NORMALS: normocephalic, atraumatic, hearing grossly normal bilaterally, external ears normal and Normal external nose present Neck/C-Spine: COMMON NORMALS: full ROM, no lymphadenopathy and supple Resp: COMMON NORMALS: normal respiratory effort, No retractions, No use of accessory muscles and clear to auscultation bilaterally EFFORT & INSPECTION: Yes able to speak in complete sentences and Yes symmetric chest movement Cardio: COMMON NORMALS: regular rate, regular rhythm, S1 normal heart sound present, No gallops present (Cardio) and No murmurs present (Cardio) GI: COMMON NORMALS: Normal to inspection, nondistended, normoactive bowel sounds present and Soft to palpation Extremity: OTHER: Edema lower extremities bilaterally, left greater than right. Negative Homans' sign Neuro: COMMON NORMALS: patient oriented x3, moves all extremities, no focal motor deficits, no sensory deficits noted and gait normal Data : 07/10/21 09:10 07/10/21 09:10 A&P Assessment and plan (1) Left femoral vein DVT: Due to intolerance with anticoagulants secondary to GI hemorrhage, we will plan to proceed with IVC filter placement. Details and risk of the procedure were carefully discussed. Rationale for filter placement was reviewed. Potential for major bleeding, filter migration, failure to prevent pulmonary embolism, infection, pain, and need for long-term surveillance or other procedures in the future or frankly discussed. All questions were answered. She wishes to proceed. Status: Chronic Attestations Medical Necessity Statement*: Recurrent GI hemorrhage, intolerant to anticoagulants with history of chronic left lower extremity DVT Time Spent in Patient Care: 16 - 35 minutes Coding Level of Care Code Acute Resource Management Planner for Tho Kelly Diagnoses Left femoral vein DVT I82.412
[2021-07-16 06:28] VITALS: BP 127/76; PULSE 78; RESP 18; TEMP 37; O2SAT 99
[2021-07-16] MEDS: sodium chloride 0.9% 1,000 ML 30 ML IV (06:30)
--- NOTE | 2021-07-16 06:40 | SC_ITS ---
WS: [id number] C-arm [place] for CVA [id number] REASON FOR EXAM: vena cava filter insertion FINDINGS: Retrievable vena cava filter identified in place to the right of midline. The superior aspect of the filter overlies the L1-L2 interspace and the inferior aspect overlies the superior aspect of the L3 v ertebral body. Orientation of the filter appears appropriate. SC/C-arm FL for CVA [id number] IMPRESSION: Inferior vena cava filter location as above.
--- NOTE | 2021-07-16 06:56 | P.ANESUD_ITS ---
Pre-Anesthetic Update Pre-Anesthetic Assessment: Date of Surgery/Procedure: 07/16/21 Preop Ada gnosis: recurrent left lower extremity DVT Proposed Procedure: Operation Date: 07/16/21 07:00 Proposed Procedures p Vena Cava Filter Insertion(Not Applicable) - Warner Ramirez MD Operation Date: 07/16/21 07:00 Proposed Procedures p IVC Filter Insertion(Not Applicable) - Warner Ramirez MD Any changes to Pre-Anesthetic Assessment?: No Last Intake: Intake Last Liquid Date 07/15/21 Last Liquid Time 23:00 Last Solid Date 07/15/21 Last Solid Time 17:30 Vitals: Temperature 98.6 F 07/16/21 06:28 Temperature Source Temporal Artery S can 07/16/21 06:28 Pulse Rate 78 07/16/21 06:28 Respiratory Rate 18 07/16/21 06:28 Blood Pressure 127/76 07/16/21 06:28 Blood Pressure Liv n 93 07/16/21 06:28 Pulse Oximetry 99 07/16/21 06:28 Oxygen Delivery Me thod 07/16/21 06:31 Exam: Pre-Anes Outpt Exam: alert, oriented x 3, clear to auscultation bilaterally and regular rate & rhythm Cardiac Studies: No Data to Display
[2021-07-16] MEDS: vancomycin 1,500 MG/300 ML PIGGYBACK 200 MG IV (07:30)
[2021-07-16] MEDS: lidocaine 1% INJ 20 mL SUBCUT (07:30)
[2021-07-16] MEDS: vancomycin 1,000 MG SDV 1000 MG IRRIGATION (07:30)
--- NOTE | 2021-07-16 07:59 | P.OP_ITS ---
Operative Report Date of procedure: July 16, 2021 Pre-op Diagnosis: recurrent left lower extremity DVT; GI hemorrhage Post-op diagnosis: same Procedure Done: Inferior vena cava filter placement Pathology: none sent Surgeon: Warner Ramirez Anesthesia: MAC and Local Complications: None Condition: stable Disposition: same day Brief History: Ms. Newton is a pleasant 80-year-old female with a chronic left lower extremity DVT. She is intolerant to anticoagulants secondary to recurrent GI hemorrhage. IVC filter placement has been recommended due to the chronicity of her DVT. Rationale for placement was carefully discussed details the risk of the procedure reviewed. Appropriate consents reviewed and signed. Procedure: The entire abdomen, lower chest, groin area, perineal area, and thighs to the level of the knees were sterilely prepped and draped. Utilizing modified Seldinger technique with handheld ultrasound identification and guidance, the right femoral vein was aspirated and a guidewire was placed under fluoroscopic guidance. Following incision of the skin with a #11 scalpel blade and predilation, dilator and #7 japanese sheath were then advanced over a 0.035 inch guidewire under fluoroscopic guidance. Next, Omnipaque was utilized to perform a venogram for proper assessment of the renal veins. Next, a preloaded IVC filter introducer was advanced through the sheath under fluoroscopic guidance into position. Following this, filter was released with fluoroscopic guidance and observation. The filter seated well with minimal angulation. Introducer and sheath were then withdrawn and direct pressure was held on the groin area for 10 minutes until hemostasis was confirmed. A weighted pressure dressing was then applied. Ms. Newton tolerated procedure well and was awakened from anesthesia. Vital signs remained stable throughout the procedure. She was transported to outpatient surgery department in stable condition.
[2021-07-16 08:15] VITALS: BP 100/60; PULSE 66; RESP 16; TEMP 36.1; O2SAT 98
--- NOTE | 2021-07-16 08:18 | SUR.OPER ---
LATE ENTRY FOR 0730 OMNIPAQUE 50ML IN 50ML NS TO STERILE FIELD
[2021-07-16 08:20] VITALS: BP 106/47; BP 117/57; PULSE 60; PULSE 69; RESP 16; RESP 18; TEMP 36.2; O2SAT 100; O2SAT 99
[2021-07-16 09:00] VITALS: BP 120/52; PULSE 62; RESP 18; TEMP 36.2; O2SAT 99
--- NOTE | 2021-07-16 15:34 | ANE.PACU2 ---
Inpatient post-anesthesia follow up: Airway intact: Yes Vital signs: Temperature 97.2 F Pulse Rate 62 Respiratory Rate 18 Blood Pressure 120/52 Pulse Oximetry 99 Oxygen Delivery Me thod Room Air Oxygen Flow Rate Fraction of Inspir ed Oxygen Hydration adequate: Yes Nausea and vomiting: No Pain level: 2 Mental status: Baseline
== END 2021-07-16 09:40 | disposition home or self-care (01) ==
PROVIDERS: PCP Nurse Practitioner Family; Visit Provider Thoracic Surgery (Cardiothoracic Vascular Surgery)
PROC: 06H03DZ Insertion of Intraluminal Device into Inferior Vena Cava, Percutaneous Approach (ICD-10-PCS; CPT 37191; principal; 2021-07-16 07:00)
DX: I82.412 Acute embolism and thrombosis of left femoral vein (principal); I10 Essential (primary) hypertension; M19.90 Unspecified osteoarthritis, unspecified site; E78.5 Hyperlipidemia, unspecified; Z79.82 Long term (current) use of aspirin
CPT/HCPCS: 37619; 36415; 76000; 77001; 80048; 81003; 85025; 85610; C1880; J2704; J3010; J3370; J7030

== ENCOUNTER 2022-03-07 10:34 | Outpatient (CLI) | payer MEDICARE, SELFPAY ==
--- NOTE | 2022-03-07 10:41 | MM_ITS ---
WS: [id number] VIEWS: MLO and CC views both breasts. 3D digital tomosynthesis is also included in this exam. Comparison made with prior exam of 12/31/2011, 03/02/2014, 02/27/2017, 01/26/2020, 02/05/2021.. Findings: There was no sign of mass, architectural distortion or suspicious calcification in either breast. Sc attered fibroglandular densities MM/[place] [id number] Impression: BI-RADS: 2-Benign FOLLOW-UP: 1 Year Follow-up This mammogram was also analyzed by the Computer Aided Detection System R2 Imag e Hot Tar Roofer Helper.
== END 2022-03-07 10:35 | disposition home or self-care (01) ==
LOC: RAD 10:36
PROVIDERS: PCP Nurse Practitioner Family; Visit Provider Nurse Practitioner Family
DX: Z12.31 Encounter for screening mammogram for malignant neoplasm of breast (principal)
CPT/HCPCS: 77063; 77067

== ENCOUNTER 2022-12-05 14:07 | Outpatient (CLI) | payer MEDICARE, SELFPAY ==
--- NOTE | 2022-12-05 14:23 | USCV_ITS ---
Monie Newton Age: 82 Gender: F : 1940 Exam Date: 12/05/2022 14:35 Ordering Phys: Salma Hare APN- [employer] PARTNER Technologist: [place] [facility] [place]ication: LT LEG SWELLING PROCEDURES: Venous duplex imaging was performed in only the left lower extremity. The following venous structures were evaluated: common femoral vein, profunda vein, proximal portion of the greater saphenous vein, superficial femoral vein, and the popliteal vein. In addition, the posterior tibial and peroneal trunk were evaluated. FINDINGS: HX OF LT LEG DVT AND IVC FILTER. PT HAS OCCLUDING AND NON OCCLUDING DVT FROM THE LT GSAPH DOWN THROUGH THE LT POP. PT'S PROVIDER HAD THE PT ADMITED TO THE ER CONCLUSIONS Left LE DVT and IVC filter. Occlusive and non-occlusive DVT from the Left GSV extending into commom femoral vein, femoral vein and through the left popliteal vein. Patient transferred to ER for further evaluation Correctional Officer Lieutenant d/w Salma Hare at time of exam Gumaro Hart MD (Electronically Signed) Final Date: 05 December 2022 15:13 S
== END 2022-12-05 14:08 | disposition home or self-care (01) ==
PROVIDERS: PCP Nurse Practitioner Family; Visit Provider Nurse Practitioner Family
DX: I82.412 Acute embolism and thrombosis of left femoral vein (principal); I82.432 Acute embolism and thrombosis of left popliteal vein; I82.812 Embolism and thrombosis of superficial veins of left lower extremity; M79.605 Pain in left leg; Z86.718 Personal history of other venous thrombosis and embolism
CPT/HCPCS: 93971

== ENCOUNTER 2022-12-05 14:54 | Emergency (ER) | payer MEDICARE, SELFPAY ==
[2022-12-05 15:17] VITALS: BP 147/72; PULSE 68; RESP 16; TEMP 36.5; O2SAT 97
--- NOTE | 2022-12-05 16:03 | W.ED.EXTPRO ---
HPI - Extremity Problem General: Chief complaint: Extremity Problem,Nontraumatic Stated complaint: Left Leg pain/swelling Time Seen by Provider: 12/05/22 15:43 History of Present Illness: Patient is an 82-year-old female comes to the ED with left leg pain and swelling. 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 Left lower leg pain and swelling started several days ago. Denies any injury or trauma to cause pain. She was scheduled for an ultrasound venous duplex of left lower extremity. After ultrasound was performed the quality assurance technician contacted Laura Hare her PCP with the results and they informed her to come to the ED for further evaluation. Patient states that she has been on a blood thinner in the past but 2 years ago she developed a ulcer and her hemoglobin dropped so they took her off of blood thinner and placed an IVC filter. She is not currently on a blood thinner. Associated symptoms: Deny chest pain, fever(s) or rash Review of Systems Const: Denies: fever(s), chills or fatigue Eyes: Denies: change in vision or eye discomfort ENMT: Denies: throat pain, odynophagia, nasal discharge or nasal congestion Card: Denies: chest pain, palpitations, edema, swelling of feet/ankles, dyspnea on exertion or orthopnea Resp: Denies: dyspnea, productive cough or non-productive cough GI: Denies: abdominal pain, nausea, vomiting, diarrhea, constipation or hematochezia : Denies: flank pain, dysuria or hematuria Musc: Reports: extremity swelling (Left leg swelling); Denies: neck pain or back pain Skin/Breast: Denies: rash or new lesions Neuro: Denies: headache(s), numbness in extremities or weakness in extremities PFSH ED PFSH: Medical History Black stool Gastric cardia ulcer Gastritis HTN, goal below 130/80 Hyperlipidemia, unspecified Osteoarthropathy Surgical History History of back surgery Lumbar History of dilation and curettage History of knee surgery Right History of left breast biopsy History of surgery on left wrist ganglion cyst Family History Other Cancer Heart disease Hypertension Social History Second hand smoke exposure: No Smoking risk assessment/counseling performed?: No Alcohol intake: never Desire information about alcohol rehabilitation?: No Counseling given: No Substance/Drug Use: never Desire information about substance/drug rehabilitation?: No Counseling given: No Adopted: No Caregiver/support person: No Lives independently: Yes Household members: none Housing: House Marital status: / Current occupational status: retired Current occupational exposures/hazards: No Do you think of yourself as: Straight/Heterosexual Current gender identity: Female Physical Exam Const: COMMON NORMALS: no acute distress, patient oriented x3 and alert HENMT: COMMON NORMALS: normocephalic HEAD & SCALP: normocephalic MOUTH: Normal oral and palatal mucosa present THROAT: posterior oropharynx normal and uvula midline Neck/C-Spine: COMMON NORMALS: supple GENERAL: Yes normal visual inspection Resp: COMMON NORMALS: normal respiratory effort, No retractions, No use of accessory muscles and clear to auscultation bilaterally AUSCULTATION: clear to auscultation bilaterally Cardio: COMMON NORMALS: regular rate, regular rhythm, S1 normal heart sound present, S2 normal heart sound present, No gallops present (Cardio), No clicks present (Cardio), No murmurs present (Cardio) and Peripheral pulses 2+ throughout RATE: regular rate RHYTHM: regular rhythm HEART SOUNDS: S1 normal heart sound present and S2 normal heart sound present PERIPHERAL PULSES: Peripheral pulses 2+ throughout GI: COMMON NORMALS: Normal to inspection, nondistended, normoactive bowel sounds present, Soft to palpation, non-tender and no masses PALPATION: Yes Soft to palpation : COMMON NORMALS: Yes no CVA tenderness BLADDER/KIDNEY EXAM: Yes no CVA tenderness Back/Pelvis: COMMON NORMALS: no CVA tenderness Extremity: COMMON NORMALS: negative for no calf tenderness GENERAL: Yes edema (1+ pitting edema to left lower extremity.) Neuro: COMMON NORMALS: patient oriented x3 SENSORIUM/ORIENTATION: Yes alert GAIT: Yes Normal gait present Skin: GENERAL SKIN EXAM: dry skin Course Vital Signs: Vital signs: Vital Signs Temperature 97.7 F 12/05/22 15:17 Pulse Rate 64 12/05/22 16:57 Respiratory Rate 16 12/05/22 16:57 Blood Pressure 149/84 12/05/22 16:57 Pulse Oximetry 97 12/05/22 16:57 Oxygen Delivery Me thod Room Air 12/05/22 16:53 MDM - Extremity (Nontraumatic) Medical Decision Making Patient is an 82-year-old female comes to the ED with left leg pain and swelling. 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 Left lower leg pain and swelling started several days ago. Denies any injury or trauma to cause pain. She was scheduled for an ultrasound venous duplex of left lower extremity. After ultrasound was performed the quality assurance technician contacted [facility] her PCP with the results and they informed her to come to the ED for further evaluation. Patient states that she has been on a blood thinner in the past but 2 years ago she developed a ulcer and her hemoglobin dropped so they took her off of blood thinner and placed an IVC filter. She is not currently on a blood thinner. Vitals are stable. Patient has 1+ pitting edema to left lower extremity but no calf tenderness. Rest of exam is benign she appears nontoxic and in no acute distress or pain. Ultrasound venous duplex was performed earlier today and it showed that patient had a IVC filter in place and a DVT in left GSV extending to common femoral vein through popliteal vein. I contacted her primary care provider's [facility] and discussed patient's case with her. She agreed that we can start patient back on a blood thinner and she will see the patient on Thursday, December 08 for further evaluation and to check some blood work labs. Patient was given dose of Lovenox here in the ED and was discharged home with a prescription for Xarelto. Strict return to ED precautions given. Patient understood and agreed with plan. Discharge Plan Discharge Patient Disposition: Home Clinical Impression: DVT (deep venous thrombosis) Qualifiers: DVT location: lower extremity Affected thrombotic vein of extremity: femoral Chronicity: unspecified Laterality: left Qualified Code(s): I82.412 - Acute embolism and thrombosis of left femoral vein Condition: Stable Prescriptions: New Xarelto 15 mg tablet 15 mg PO BID 21 Days Qty: 42 0RF Rx Instructions: must administer with a meal/food No Action furosemide 20 mg tablet 20 mg PO QAM Qty: 90 1RF loratadine 10 mg tablet 10 mg PO DAILY fluticasone propionate [Flonase Allergy Relief] 50 mcg/actuation spray,suspension 1 spray intranasal DAILY Rx Instructions: administer into each nostril sucralfate [Carafate] 1 gram tablet 1 g PO TID 84 Days Qty: 252 2RF Rx Instructions: take an hour prior to meals and two hours before meds pantoprazole [Protonix] 40 mg tablet,delayed release (DR/EC) 40 mg PO DAILY 30 Days Qty: 30 3RF aspirin 81 mg Tablet 81 mg PO DAILY Hold Instructions: Resume on 05/25/21. alprazolam 0.5 mg Tablet 0.5 mg PO BID PRN (Reason: Anxiety) olmesartan 20 mg Tablet 20 mg PO DAILY metoprolol succinate [Toprol XL] 25 mg tablet extended release 24 hr 50 mg PO BEDTIME lovastatin 10 mg tablet 10 mg PO BEDTIME montelukast [Singulair] 10 mg tablet 10 mg PO BEDTIME Discharge Orders: Discharge ED (Routine); Ordered 12/05/22 Ordered By: Sidney Tejada Referrals: Hare,TOMÁS Marsh [Primary Care Provider] - Discharge Diet: Regular Discharge Activity: Increase activity as tolerated Patient Instructions: Deep Vein Thrombosis (ED) Activity Restrictions/Additional Instructions: Follow-up with medical provider as directed on December 08 for reevaluation and to recheck labs. Start taking the prescribed Xarelto tomorrow. return to the ER or your medical provider if condition worsens. Please read and understand discharge instructions. Thank you for choosing [facility] for your healthcare needs today. Please realize this is an emergency room and that we are providing you with a medical screening exam and this may not be complete and all inclusive of all the testing and or work up that you may need to determine your ailment or severity of your illness. It is very important that you follow up as instructed or that you return to the Emergency Department should you have concerns or if your condition changes or worsens in any way. Coding Level of Care Code ED Powder Cutting Operator for Tho Kelly
[2022-12-05 16:53] VITALS: BP 149/84; PULSE 62; RESP 16; O2SAT 98
[2022-12-05 16:57] VITALS: BP 149/84; PULSE 64; RESP 16; O2SAT 97
[2022-12-05] MEDS: enoxaparin 100 mg/mL Syringe SUBCUT (16:57)
== END 2022-12-05 16:58 | disposition home or self-care (01) ==
PROVIDERS: Emergency Provider Physician Assistant; PCP Nurse Practitioner Family
DX: I82.412 Acute embolism and thrombosis of left femoral vein (principal); Z79.82 Long term (current) use of aspirin; I10 Essential (primary) hypertension; E78.5 Hyperlipidemia, unspecified
CPT/HCPCS: 93971; 96372; 99284; J1650

== ENCOUNTER → 2022-12-30 14:16 | Outpatient (BNVA) | payer MEDICARE, SELFPAY | PROVIDERS: PCP Nurse Practitioner Family; Visit Provider Thoracic Surgery (Cardiothoracic Vascular Surgery) | DX: I82.412 Acute embolism and thrombosis of left femoral vein (principal) | CPT/HCPCS: 99212 ==

== ENCOUNTER 2023-03-17 09:59 | Outpatient (CLI) | payer MEDICARE, SELFPAY ==
--- NOTE | 2023-03-17 10:06 | MM_ITS ---
WS: [id number] VIEWS: MLO and CC views both breasts. 3D digital tomosynthesis is also included in this exam. Comparison made with prior exam of 03/02/2014, 02/27/2017, 04/13/2018, 01/26/2020, 02/05/2021, 03/07/2022.. Findings: There was no sign of mass, architectural distortion or suspicious calcification in either breast. The re are scattered areas of fibroglandular density Impression: MM/[place] [id number] BI-RADS: 2-Benign finding. FOLLOW-UP: 1 Year Follow-up This mammogram was also analyzed by the Computer Aided Detection System R2 Imag e Planer Hand.
== END 2023-03-17 10:00 | disposition home or self-care (01) ==
LOC: RAD 10:01
PROVIDERS: PCP Nurse Practitioner Family; Visit Provider Nurse Practitioner Family
DX: Z12.31 Encounter for screening mammogram for malignant neoplasm of breast (principal)
CPT/HCPCS: 77063; 77067

== ENCOUNTER → 2023-04-16 15:28 | Outpatient (BNVA) | payer MEDICARE, SELFPAY | PROVIDERS: PCP Nurse Practitioner Family; Visit Provider Podiatrist Foot & Ankle Surgery | DX: M25.472 Effusion, left ankle (principal); M79.672 Pain in left foot; M25.572 Pain in left ankle and joints of left foot | CPT/HCPCS: 73610; 99203 ==

== ENCOUNTER → 2023-06-09 15:02 | Outpatient (BNVA) | payer MEDICARE, SELFPAY | PROVIDERS: PCP Nurse Practitioner Family; Visit Provider Podiatrist Foot & Ankle Surgery | DX: S86.012A Strain of left Achilles tendon, initial encounter; X58.XXXA Exposure to other specified factors, initial encounter | CPT/HCPCS: 99213 ==

== ENCOUNTER → 2023-07-28 09:57 | Outpatient (BNVA) | payer MEDICARE, SELFPAY | PROVIDERS: PCP Nurse Practitioner Family; Visit Provider Podiatrist Foot & Ankle Surgery | DX: M25.472 Effusion, left ankle (principal); S86.012D Strain of left Achilles tendon, subsequent encounter; X58.XXXD Exposure to other specified factors, subsequent encounter | CPT/HCPCS: 99213 ==

== ENCOUNTER → 2023-08-21 08:33 | Outpatient (BNVA) | payer MEDICARE, SELFPAY | PROVIDERS: PCP Nurse Practitioner Family; Visit Provider Nurse Practitioner Family | DX: I10 Essential (primary) hypertension (principal); R00.0 Tachycardia, unspecified; E78.5 Hyperlipidemia, unspecified; E55.9 Vitamin D deficiency, unspecified | CPT/HCPCS: 80053; 80061; 82306; 84443; 85025 ==

== ENCOUNTER → 2023-09-22 13:53 | Outpatient (BNVA) | payer MEDICARE, SELFPAY | PROVIDERS: PCP Nurse Practitioner Family; Visit Provider Podiatrist Foot & Ankle Surgery | DX: M25.472 Effusion, left ankle (principal); M79.672 Pain in left foot; S86.012D Strain of left Achilles tendon, subsequent encounter; X58.XXXD Exposure to other specified factors, subsequent encounter | CPT/HCPCS: 99213 ==

== ENCOUNTER → 2023-11-24 14:30 | Outpatient (BNVA) | payer MEDICARE, SELFPAY | PROVIDERS: PCP Nurse Practitioner Family; Visit Provider Podiatrist Foot & Ankle Surgery | DX: S86.012D Strain of left Achilles tendon, subsequent encounter (principal); X58.XXXD Exposure to other specified factors, subsequent encounter | CPT/HCPCS: 99213 ==

== ENCOUNTER → 2023-12-22 13:06 | Outpatient (BNVA) | payer MEDICARE, SELFPAY | PROVIDERS: PCP Nurse Practitioner Family; Visit Provider Nurse Practitioner Family | DX: I10 Essential (primary) hypertension (principal); E78.5 Hyperlipidemia, unspecified; E55.9 Vitamin D deficiency, unspecified; K21.9 Gastro-esophageal reflux disease without esophagitis | CPT/HCPCS: 80053; 80061; 82306; 85025 ==

== ENCOUNTER → 2024-08-01 13:38 | Outpatient (BNVA) | payer MEDICARE, SELFPAY | PROVIDERS: PCP Nurse Practitioner Family; Visit Provider Nurse Practitioner Family | DX: J02.9 Acute pharyngitis, unspecified (principal) | CPT/HCPCS: 87071; 87880 ==

== ENCOUNTER 2024-09-13 10:59 | Outpatient (CLI) | payer MEDICARE, SELFPAY ==
--- NOTE | 2024-09-13 11:15 | XRR_ITS ---
PROCEDURE INFORMATION: Exam: XR Bilateral Hips Exam date and time: 09/13/2024 11:29 AM Age: 84 years old Clinical indication: Hip pain; Bilateral; Pain in the groin area for the last several months. Spent time over the last few months walking the halls of the hospital and pain has increased. ; Additional info: R hip pain/l hip joint pain TECHNIQUE: Imaging protocol: Radiologic exam of the bilateral hips. Views: 2 views of hips with pelvis when performed. COMPARISON: No relevant prior studies available. FINDINGS: Bones/joints: Right hip: Severe narrowing right hip joint space. Marginal spurring. Subchondral cystic changes. No displaced fracture nor dislocation seen. Mild bony protuberance femoral neck. Nonspecific osteitis pubic symphysis. Degenerative changes spine. Left hip: Mild narrowing medial aspect left hip joint space. No displaced fracture nor dislocation seen. Mild bony protuberance femoral neck. Faint calcific densities adjacent to ischium. Nonspecific osteitis pubic symphysis. Degenerative changes spine. Soft tissues: Unremarkable. XR/XR hip BI 3-4V wo/w pel [id number] IMPRESSION: 1. Arthritic changes right hip with severe narrowing right hip joint space. 2. Mild arthritic changes left hip. Please see body of report for findings.
== END 2024-09-13 11:00 | disposition home or self-care (01) ==
PROVIDERS: Absent Provider Nurse Practitioner; Visit Provider Nurse Practitioner Family
DX: M16.0 Bilateral primary osteoarthritis of hip (principal); M76.9 Unspecified enthesopathy, lower limb, excluding foot; R93.7 Abnormal findings on diagnostic imaging of other parts of musculoskeletal system; M86.8X8 Other osteomyelitis, other site; M47.9 Spondylosis, unspecified; R93.89 Abnormal findings on diagnostic imaging of other specified body structures
CPT/HCPCS: 73522

== ENCOUNTER → 2024-09-21 15:15 | Outpatient (BNVA) | payer MEDICARE, SELFPAY | PROVIDERS: Referring Provider Nurse Practitioner Family; Visit Provider Nurse Practitioner | DX: M16.0 Bilateral primary osteoarthritis of hip (principal) | CPT/HCPCS: 73523; 99204 ==

== ENCOUNTER → 2024-10-14 11:36 | Outpatient (BNVA) | payer MEDICARE, SELFPAY | PROVIDERS: PCP Nurse Practitioner Family; Visit Provider Specialist | DX: M16.11 Unilateral primary osteoarthritis, right hip (principal) | CPT/HCPCS: 20610; 77002; J1100; J2795; J3301; J9999 ==

== ENCOUNTER → 2024-11-15 07:58 | Outpatient (BNVA) | payer MEDICARE, SELFPAY | PROVIDERS: PCP Nurse Practitioner Family; Visit Provider Student in an Organized Health Care Education/Training Program | DX: M16.0 Bilateral primary osteoarthritis of hip (principal) | CPT/HCPCS: 99204 ==

== ENCOUNTER 2024-12-27 09:46 | Outpatient (CLI) | payer MEDICARE, SELFPAY ==
--- NOTE | 2024-12-27 09:45 | USCV_ITS ---
Monie Newton Age: 84 Gender: F : 1940 Exam Date: 12/27/2024 10:01 Ordering Phys: Jeff Tejada DO Technologist: Exam Location: [facility] [place] Indication: hx of dvt leg pain bilat PROCEDURES: Comparison:. 12/05/22 The venous duplex Doppler examination of both lower extremities was performed in the standard fashion. Venous duplex imaging was performed in only the left lower extremity. The following venous structures were evaluated: common femoral vein, profunda vein, proximal portion of the greater saphenous vein, superficial femoral vein, and the popliteal vein. FINDINGS: The lt femoral dell has completely collapsed from a previous dvt. No left acute DVT. The popliteal has recanalized to the deep profunda on the lt side. History of prior left DVT. The rest of the veins on both sides are normal. CONCLUSIONS No right DVT. History of prior left DVT. No acute DVT seen today. Dr. Evelyne Perez DO (Electronically Signed) Final Date: 27 December 2024 12:48 S
[2024-12-27 10:46] LABS: Basophils # 0.1 10^3/uL (0.0-0.1); Eosinophils # 0.1 10^3/uL (0.0-0.8); Eosinophils % 1.4 %; Hematocrit 37.3 % (36-47); Lymphocytes # 2.1 10^3/uL (0.8-4.8); Lymphocytes % 33.4 %; Mean Corpuscular HGB Conc 32.2 g/dL (30-55); Mean Corpuscular Hemoglobin 30.4 pg (27-33); Mean Corpuscular Volume 94.4 fl (85-98); Mean Platelet Volume 10.9 fL (7.4-10.4); Monocytes # 0.5 10^3/uL (0.2-0.9); Monocytes % 8.5 %; Neutrophils # 3.46 10^3/uL (1.8-7.7); Neutrophils % 55.4 %; Nucleated Red Blood Cells % 0 %; Platelet Count 243 10^3/cmm (157-399); Red Blood Count 3.95 10^6/uL (3.85-5.65); Red Cell Distribution Width 12.5 % (12.1-15.1); White Blood Count 6.25 10^3/uL (3.29-11.43)
[2024-12-27 10:52] LABS: Bilirubin Urine Negative (Negative); Blood Urine Negative (Negative); Glucose Urine UA Negative (Normal); Ketones Urine Negative (Negative); Leukocyte Esterase Urine Negative (Negative); Nitrate Urine Negative (Negative); Protein Urine Negative (Negative); Specific Gravity, Urine 1.007 (1.005-1.030); Urine Appearance Clear (CLEAR); Urine Color Yellow (Yellow); Urobilinogen Urine 0.2 mg/dL (Negative)
[2024-12-27 10:55] LABS: Add Urine Microscopic? YES; Bacteria Urine None Seen /hpf; Hyaline Casts Urine 0.81 /lpf; RBC Urine 0-2 /hpf (0-2); Squamous Epithelial Cell Urine 0-5 /hpf (0-5); WBC Urine 0-5 /hpf (0-5)
[2024-12-27 11:03] LABS: Alanine Aminotransferase 11 U/L (0-33); Albumin Level 4.2 g/dL (3.5-5.2); Alkaline Phosphatase 104 U/L (35-105); Anion Gap 16.4 (5-19); Aspartate Amino Transferase 14 U/L (0-32); Blood Urea Nitrogen 32 mg/dL (8-23); Calcium 9.8 mg/dL (8.5-10.5); Carbon Dioxide 25 mmol/L (22-29); Chloride 99 mmol/L (98-107); Glucose 92 mg/dL (65-115); Osmolality Calculated 289 mOsm/kg (285-295); Potassium 4.4 mmol/L (3.5-5.1); Sodium 136 mmol/L (136-145); Total Bilirubin 0.9 mg/dL (0.15-1.2); Total Protein 7.2 g/dL (6.6-8.7)
== END 2024-12-27 09:47 | disposition home or self-care (01) ==
LOC: RAD 09:48
PROVIDERS: PCP Nurse Practitioner Family; Visit Provider Student in an Organized Health Care Education/Training Program
DX: Z09 Encounter for follow-up examination after completed treatment for conditions other than malignant neoplasm (principal); Z86.718 Personal history of other venous thrombosis and embolism
CPT/HCPCS: 36415; 80053; 81001; 85025; 93970

== ENCOUNTER 2025-01-03 14:47 | Outpatient (CLI) | payer MEDICARE, SELFPAY ==
--- NOTE | 2025-01-03 15:00 | CT_ITS ---
WS: [id number] CT RIGHT hip for PRISCILLA procedure HISTORY: M16.11 - Unilateral primary osteoarthritis, right hip Date: 01/03/2025 3:07 PM TECHNIQUE: Protocol for PRISCILLA total hip replacement has been obtained. This includes axial imaging from the hip joint through the knee joint. DLP: [id number] FINDINGS: Advanced arthritis RIGHT hip with [id number] articulation. Osteopenia. Subchondral cystic change and sclerosis in the RIGHT femoral head and acetabulum. Hypertrophic changes. Degenerative arthritis of the pubic symphysis. Facet arthropathy lower lumbar spine. Degenerative arthritis sacroiliac joints. Tortuous subcutaneous lower extremity venous collaterals and varicosities visualized in the anterior pelvic subcutaneous soft tissues extending into the mons pubis. Sigmoid diverticulosis. Small fat-containing umbilical hernia. Large partially visualized cystic appearing lesion in the RIGHT adnexa measuring 9.0 x 7.7 cm. recommend further evaluation with pelvic ultrasound. Cystic neoplasm is not excluded. No prior comparison cross-sectional or ultrasound pelvic studies CT/CT hip RT [facility] [id number] IMPRESSION: 1. Large partially visualized cystic lesion in the RIGHT adnexa measuring 9.0 x 7.7 cm. recommend further evaluation with pelvic ultrasound. Cystic neoplasm is not excluded. CT imaging provided for PRISCILLA robotic total hip replacement.
== END 2025-01-03 14:48 | disposition home or self-care (01) ==
LOC: RAD 14:49
PROVIDERS: PCP Nurse Practitioner Family; Visit Provider Student in an Organized Health Care Education/Training Program
DX: M16.11 Unilateral primary osteoarthritis, right hip (principal); Z01.818 Encounter for other preprocedural examination; M85.861 Other specified disorders of bone density and structure, right lower leg; M47.896 Other spondylosis, lumbar region; M46.1 Sacroiliitis, not elsewhere classified; I83.91 Asymptomatic varicose veins of right lower extremity; R93.89 Abnormal findings on diagnostic imaging of other specified body structures
CPT/HCPCS: 73700; 93005

== ENCOUNTER 2025-01-16 15:57 | Observation (INO) | payer MEDICARE, SELFPAY ==
[2025-01-16] VITALS (15 sets, daily range): BP systolic 124–181; BP diastolic 56–89; PULSE 50–67; RESP 10–23; TEMP 36.3–36.7; O2SAT 94–100; BMI 41.9
--- NOTE | 2025-01-16 11:56 | ANES.PREANE2 ---
Pre-Anesthetic Assessment Height/Weight: Height 5 ft 6 in Weight 260 lb Preop Diagnosis: Hip arthritis Operation Date: 01/16/25 12:30 Proposed Procedures p Sal Robot Total Hip Arthroplasty posterior(Right) - Jeff Tejada DO Was Beta Syed taken within 24 hours: N/A Was Clonidine taken within 24 hours: N/A Last intake: Intake Last Liquid Date 01/15/25 Last Liquid Time 21:00 Last Solid Date 01/15/25 Last Solid Time 21:00 Social No alcohol and No tobacco Exam alert, oriented x 3, clear to auscultation bilaterally and regular rate & rhythm Airway Submandibular: within normal limits Cervical ROM: within normal limits Mallampati: Class II Dentition: full Anesthetic Plan ASA status: 3 Anesthesia: MAC and Regional (specify below) Other: No prior issues with anesthesia NPO since yesterday evening History of DVT, no blood thinners CKD stage III Hypertension on olmesartan and metoprolol GERD on Protonix Labs reviewed and acceptable for procedure EKG sinus rhythm with possible anterior old [place] Plan for spinal Medications/Allergies Home Medications ?Medication ?Instructions ?Recorded ?Confirmed ?Last Taken ?Type fluticasone propionate 50 1 spray intranasal DAILY 06/13/21 01/12/25 01/11/25 History mcg/actuation nasal spray,suspension (Flonase Allergy Relief) aspirin 81 mg tablet 325 mg PO DAILY 12/30/22 01/12/25 01/09/25 History carbamide peroxide 6.5 % ear drops 5 drp otic (ear) DAILY 4 days #15 03/17/24 01/12/25 Unknown Rx (Debrox) mL meloxicam 15 mg tablet 15 mg PO DAILY 90 days #90 tabs 03/17/24 01/12/25 01/02/25 Rx metoprolol succinate 100 mg 100 mg PO DAILY 90 days #90 tabs 03/17/24 01/12/25 01/11/25 Rx tablet,extended release 24 hr olmesartan 40 mg tablet 40 mg PO DAILY 90 days #90 tabs 03/17/24 01/12/25 01/12/25 Rx triamcinolone acetonide 0.5 % 1 applic topical BID #15 grams 03/17/24 01/12/25 01/12/25 Rx topical cream fexofenadine 180 mg tablet 180 mg PO DAILY 90 days #90 tabs 03/21/24 01/12/25 01/12/25 Rx (Dori Allergy) furosemide 20 mg tablet 20 mg PO DAILY 01/12/25 01/12/25 01/12/25 History montelukast 10 mg tablet 10 mg PO DAILY 01/12/25 01/12/25 01/12/25 History pantoprazole 40 mg tablet,delayed 40 mg PO DAILY 01/12/25 01/16/25 01/16/25 History release Allergies Allergy/AdvReac Type Severity Reaction Status Date / Time pseudoephedrine AdvReac Severe palpation Verified 01/16/25 11:24 Penicillins AdvReac Intermediate ALGY-Rash Verified 01/16/25 11:24 [facility] Anesthesia Medical History Primary localized osteoarthritis of hips, bilateral Gastritis Gastric cardia ulcer Black stool Osteoarthropathy Hyperlipidemia, unspecified HTN, goal below 130/80 Surgical History History of left breast biopsy History of surgery on left wrist ganglion cyst History of back surgery Lumbar History of knee surgery Right History of dilation and curettage Family History Other Cancer Heart disease Hypertension Social History Smoking and tobacco/nicotine status: never used tobacco/nicotine Second hand smoke exposure: No Alcohol intake: never Substance/Drug Use: never Adopted: No Caregiver/support person: No Lives independently: Yes Household members: none Housing: House Marital status: / Current occupational status: retired Current occupational exposures/hazards: No Do you think of yourself as: Straight/Heterosexual Current gender identity: Female
--- NOTE | 2025-01-16 12:10 | W.PM.OPSUD ---
Surgery/Procedure H&P Update DATE OF PROCEDURE: January 16, 2025 DATE H&P PERFORMED: 12/27/24 H&P UPDATE INFORMATION: I have reviewed H&P completed within last 30 days, I have examined patient prior to procedure and No changes to prior documentation CHANGES TO PREVIOUS DOCUMENTATION: No change in health from last visit patient ready to proceed with surgical intervention for right total hip arthroplasty?Sal robotic assisted through posterior approach. Understands ins and outs procedure risk benefits complication alternatives of surgery and through shared decision making patient like to proceed with surgical invention all questions at this time. She is over 90 days out from her last cortisone injection all questions answered. I did verify that she has a penicillin allergy which is just a rash she had no difficulty with breathing she states with previous sinus infection/UTI she is taken Keflex in the past which she has tolerated well without issues we will proceed with Ancef today which she understands the ins and outs of this the risks the benefits in this point time through shared decision making she elects to proceed with continuing with the Ancef for the best broad-spectrum coverage all questions answered at this time. Proceed with the OR today. PREOP DIAGNOSIS: Right hip arthritis PRIMARY INDICATION FOR PROCEDURE: Right hip degenerative joint disease PLANNED PROCEDURE: Operation Date: 01/16/25 12:30 Proposed Procedures p Sal Robot Total Hip Arthroplasty posterior(Right) - Jeff Tejada DO
[2025-01-16] MEDS: acetaminophen 1,000 MG/100 ML PIGGYBACK 400 MG IV ×2 (12:22→20:46)
[2025-01-16] MEDS: ceFAZolin 2,000 MG in sodium chloride 0.9% (plus) 50 ML 100 MG IV ×2 (12:45→20:47)
--- NOTE | 2025-01-16 12:46 | SUR.PREOP ---
SCOPOLAMINE AND TORADOL HELD PER DOCTOR STERN.
[2025-01-16 13:07] LABS: Hematocrit 34.7 % (36-47); Hemoglobin 11.20 g/dL (11.27-16.99); Mean Corpuscular HGB Conc 32.3 g/dL (30-55); Mean Corpuscular Hemoglobin 30.4 pg (27-33); Mean Corpuscular Volume 94.3 fl (85-98); Nucleated Red Blood Cells % 0 %; Platelet Count 227 10^3/cmm (157-399); Red Blood Count 3.68 10^6/uL (3.85-5.65); White Blood Count 5.86 10^3/uL (3.29-11.43)
[2025-01-16] MEDS: tranexamic acid 1,000 mg/10mL SDV 1000 MG IV (13:15)
[2025-01-16 13:32] LABS: Blood Urea Nitrogen 19 mg/dL (8-23); Calcium 9.8 mg/dL (8.5-10.5); Carbon Dioxide 24 mmol/L (22-29); Chloride 101 mmol/L (98-107); Creatinine Clr Calc Pharmacy 56.6632; Glucose 90 mg/dL (65-115); Osmolality Calculated 288 mOsm/kg (285-295); Sodium 138 mmol/L (136-145)
[2025-01-16 13:35] LABS: Anion Gap 17.3 (5-19); Potassium 4.3 mmol/L (3.5-5.1)
--- NOTE | 2025-01-16 15:38 | P.OP_ITS ---
Operative Report Date of procedure: January 16, 2025 Surgeon: Jeff Tejada DO Building Services Technician: Sidney Tejada PA-C: PA was necessary for assistance in this case with leg positioning, hip reductions, retraction and protection of neurovascular structures as well as assistance in implantation of prosthesis, wound closure and dressing application. Procedure: Preop Diagnosis?Right?hip?degenerative joint disease Post-op diagnosis: Right?hip?degenerative joint disease Procedure done: Right total?hip?arthroplasty?robotic assisted Sal?posterior approach Implants: Stockwell total?hip?arthroplasty implants 50 mm cluster hole acetabular shell 6.5 mm x (20 & 20mm) acetabular screw Alpha code D MDM cementless metal liner Ameya insignia high offset size 5 femur stem Alpha code D MDM +3 mm head Surgeon: Jeff Tejada DO Estimated blood loss: 125 mL IV fluids: 1900 mL Urine output: 200 mL Complications: None Condition: stable Disposition: floor Brief History: Patient's been seen and worked up by myself in the outpatient setting and findings consistent with Right?hip?degenerative joint disease. pt has failed conservative treatment this is causing pt severe pain and decreased mobility. We talked about his treatment options as far as nonoperative and operative intervention. Patient ultimately through shared decision-making would like to proceed with a Right total?hip?arthroplasty. we detailed out risk benefits complications alternatives to surgical and nonsurgical treatment options. Understanding risk for surgery patient elects to proceed with Right total?hip?arthroplasty robotic assisted Sal utilizing a?posterior approach. All questions answered. Patient elects proceed with surgery today. Procedure: Patient was seen evaluate in preoperative holding area.? Consent was reviewed and signed with patient.? Correct extremity was then marked.? Patient seen evaluate by anesthesia department once cleared for surgery pt was taken back to the operative suite.? Patient underwent spinal anesthesia per the anesthesia department.? This point time pt was then placed on the operative suite and table.? Pt was then placed in lateral decubitus patient worked with the Right?hip?up.? Patient was secured in the lateral decubitus position with pegboard. All bony prominences well-padded he was properly secured to the bed.? At this point time the Right lower extremity was then prepped and draped in standard orthopedic fashion with care not to drape out the iliac wing for pelvic array placement.? Final timeout performed.? Patient received appropriate preoperative antibiotics. Started off with establishment of my pelvic array pins.? A small longitudinal incision was made directly over the iliac wing.? Sharp scalpel excision through skin and subcutaneous tissue directly onto bone.? Next I then loaded my pelvic pin.? This was then drilled through the iliac wing corridor with excellent fixation.? Next I then loaded the guide which was placed directly onto bone and then subsequently placed 2 more pins to secure fixation.? Next the pelvic array was then sent had excellent visualization with the Sal robot and was secured. EKG pad was placed on the distal lateral aspect of the femur and sterile aseptic technique and use as my distal reference point. Next I proceeded with my standard?posterior approach.? Sharp scalpel through skin and subcutaneous tissue this was centered over the greater trochanter.? I then utilized a Alejo elevator over the gluteus lorenzo fascia.? Next the fascia was then split longitudinally with bipolar electrocautery.? Next a Charnley retractor was then placed.? Hohmann retractor was then placed into the abductors.? A standard full-thickness release of the piriformis and the short external rotators along with the capsule to 1 full thick sleeve for later repair was then placed straight down to the lesser trochanter.? Lesser trochanter was then subsequently identified.? Prior to dislocating the?hip?we then placed our greater trochanter femur checkpoint.? We marked our appropriate checkpoint for referencing on pelvic array.? At this point in time we then established both of our checkpoints as well as referencing for leg lengths I utilized the EKG pad as my distal reference point. The legs were marked and traced to have appropriate position on the drapes to allow for accurate reading.? Preoperative leg lengths set. Once this was then established I then proceeded with dislocation of the femoral head.? At this point Hohmann's were then placed superiorly and inferiorly along the femoral neck.? The sciatic nerve was protected throughout this case.? At this point time I then utilized the Sal robot and referencing point to reference different aspects along the femoral head and neck for my appropriate neck length.? These were referenced on the inferior mid substance as well as up into the superior shoulder of the femoral neck.? This marked my oscillating saw was used to make my femoral neck cut.? Femoral head was then removed. Next the leg was placed in appropriate position and my anterior and?posterior acetabular retractors then placed.? Next I excised the labrum and then remove the pulvinar.? I did do a small release of the inferior capsule which was severely taut to allow for easier placement of my reamers as well as reduction.? Acetabulum was thoroughly irrigated. At this point in time keeping my retractors in place I subsequently loaded up the [employer] robot for my acetabular reaming.?? Next I then set my 50 reamer under the Sal robot and subsequently held this with appropriate preplanned preop planned version of 40 degrees of abduction angle as well as 20 degrees of anteversion.? I then subsequently reamed this to the appropriate depth with 50mm reamer.? We opened up the acetabular shell clusterhole of the 50 mm Ameya this was then loaded onto my impacting system and then I subsequently impacted this to appropriate depth.? This was then removed from the robot and I used the Sal probe at the center to confirm on the CT scan that this was down on bone which it was.? Next I then drilled and placed 2 acetabular screws with excellent fixation these were drilled and measured to be 20 & 20mm this was in the?posterior superior aspect of the acetabulum had excellent bite and fixation.? The cup was solid and had excellent press-fit fixa tion. next, opened the alpha code D MDM cementless liner then subsequently placed in appropriate position and impacted into place.? At this point time I then utilized a small rongeur to clear off the shoulder of the femoral neck to clear out the soft tissue envelope for my box osteotome.? Next box osteotome was used a canal finder was placed as well as a lateral lysing rattail rasp.? Once I was appropriately lateralized I then sequentially broached up to a size 5 femoral stem with high offset. This was impacted to appropriate depth and flushed with my femoral neck cut.? This point I loaded a standard size neck(+0mm) and subsequently reduced the?hip.? At this point in time the?hip?was taken through range of motion before evaluating with the robot on leg lengths.? Patient appeared to have room to increase on leg lengths clinically.? The?hip?was taken through range of motion and had excellent stability with?hip?flexion and internal rotation with no evidence of instability had an slightly increased shuck.? This point time utilized the Sal probe from our femur checkpoint down to her distal checkpoint. Satisfied with this trial implants, at this point I dislocated the?hip?and then called for my final implants with excellent stability in all planes.? Opened up a Stockwell insignia high offset size 5 stem. My trials were then removed and then subsequently impacted my the insignia size 5 high offset femur stem to the same level.? This point in time I trialed up to a +3 mm neck length which helped match with Sal robotic assistance had appropriate leg lengths comparative to the contralateral?hip?and this was confirmed clinically as well as had excellent stability I felt as though this was best combination with leg lengths being equal as well as with stability and elected for the final +3 mm MDM femoral head. Final MDM femoral head component was then opened and the trunnion was dried and this was impacted with excellent fixation and the?hip?was subsequently reduced.? We measured our final leg lengths which were appropriate patient had excellent stability in all ranges of motion.? This point time a robotic pins and checkpoints were removed.? I remove the femur checkpoint as well as my pelvic array and iliac wing pins.? Appropriate counts were then made.? This point time thoroughly irrigated the wound bed with pulse lavage.? Vancomycin powder was then sprinkled into the wound bed.? I then performed a standard capsular and external rotator repair utilizing #5 Ethibond and this was tied and repaired through bone tunnels?hip, sciatic nerve was protected throughout this portion of the case. Was then kept in abduction external rotation and subsequently closed the fascial layer with Ethibond suture as well as running strata fix suture.? I then closed the deep subcutaneous layer as well as superficial subcutaneous layer with running strata fix suture as well as 3-0strata fix for skin.? Prineo glue dressing was then placed over the skin.? I then irrigated the pelvic array pin site.? There is were then closed with interrupted 0, 2-0 Vicryl suture and Monocryl as well as Prineo glue for the skin.? Incisions were then covered with ce and Silverlon dressing.? Patient was awakened from anesthesia and taken to PACU in stable condition Disposition: Patient taken to PACU in stable condition.? Patient will receive appropriate discharge instructions as well as DVT prophylaxis and pain medication.? Patient will be admitted to the floor for observation should be evaluated by the internal medicine team for medical management.? Patient received appropriate DVT prophylaxis as well as pain medication PT/OT weightbearing as tolerated Right lower extremity with?posterior?hip?precautions,?Postoperative Abx and TXA.? We will follow-up with patient in the office in 2 weeks.? Patient understands agrees with current plan.? All questions answered.
--- NOTE | 2025-01-16 15:49 | P.BOP_ITS ---
Date of Procedure: [January 16, 2025] Surgeon: [Dr. Tejada DO] Compensation Adjuster(s): [Sidney Tejada PA-C] Procedure(s) performed: [Right hip total arthroplasty with Sal robotic assist] Findings of the procedure(s): [Right hip degenerative joint disease. Procedure went well and his plan] Estimated blood loss: [125 mL] Specimen(s) removed: [Femoral head and acetabular reamings removed] Post-operative diagnosis: [Right hip degenerative joint disease]
--- NOTE | 2025-01-16 15:50 | XRR_ITS ---
PROCEDURE INFORMATION: Exam: XR Right Hip Exam date and time: 01/16/2025 3:52 PM Age: 84 years old Clinical indication: Device placement; Other: Daiana, prior surgery; Surgery date: Post-operative (0-2 days); Additional info: Post op daiana, do in pacu TECHNIQUE: Imaging protocol: Radiologic exam of the right hip. Views: 1 view hip with pelvis when performed. COMPARISON: CT hip RT [facility] [id number] 01/03/2025 3:14 PM FINDINGS: Bones/joints: A right hip prosthesis is well seated and well aligned. Soft tissues: Soft tissue air noted. XR/XR hip RT 2-3V wo/w pel* [id number] IMPRESSION: Intact postoperative hip prosthesis
--- NOTE | 2025-01-16 15:50 | PM.PACU ---
PACU note Narrative: Patient is an 84-year-old female who just underwent a right total hip arthroplasty. Pt transferred to PACU in stable condition. Dressing is dry. pt is awake and alert. pt can wiggle toes and plantarflex and dorsiflex foot. pt able to perform straight leg raise, Femoral nerve intact. Distal pulses are palpable toes are warm and well-perfused. Cap refill is normal and under 2 seconds. Sensation to foot is starting to return. pain is controlled. Exam: awake Disposition: admitted
--- NOTE | 2025-01-16 16:15 | ANE.PACU2 ---
Inpatient post-anesthesia follow up: Airway intact: Yes Vital signs: Temperature 97.5 F Pulse Rate 73 Respiratory Rate 18 Blood Pressure 116/70 Pulse Oximetry 90 Oxygen Delivery Me thod Room Air Oxygen Flow Rate Fraction of Inspir ed Oxygen Hydration adequate: Yes Nausea and vomiting: No Pain level: 1 Mental status: Baseline
--- NOTE | 2025-01-16 16:40 | PC.NURSE ---
Pt arrives to ICU as medsurg pt from PACU. Right hip dressing drya dn intact. Ice in place. Pt alert and oriented. sinus rhtyhm noted on monitor. Butler cath patent and draining.
[2025-01-16] MEDS: chlorhexidine gluconate 0.12% Btl 473 mL 30 ML MUCOUS MEM ×2 (16:59→21:17)
[2025-01-16] MEDS: mupirocin oint 22 gm 1 APPLIC NASAL (17:01)
[2025-01-16] MEDS: HYDROmorphone 0.5 MG/0.5 ML INJ IVP ×2 (17:07→21:09)
[2025-01-16] MEDS: calcium carb-vit d 600mg/400unit 1 Tablet 1 EACH PO (17:12)
[2025-01-16] MEDS: sennosides-docusate Tablet 2 TAB PO (17:12)
--- NOTE | 2025-01-16 17:46 | PM.CONSULT ---
Providers/Reason For Consult Consulting Physician/Specialty*: Gumaro Hampton MD hospitalist Reason for Consult*: Hypertension Requesting Physician: Jeff Tejada Attending Physician: Jeff Tejada DO Primary Care Provider: Archana Varela History of Present Illness History of Present Illness Monie Newton is a 84 year old female with history of hypertension but not diabetes. She is also had stomach ulcers and after COVID she developed DVTs. When anticoagulate with Xarelto she had bleeding. Patient underwent IVC filter placement 07/16/2021. She denies leg swelling. She does not have any problems with her filter . Venous Dopplers done 12/27/2024 shows no right leg DVT the left femoral vein is completely collapsed from her previous DVT there has been collaterals on the left side. 12/05/2022 patient had occluding a nonoccluding DVT from the left greater saphenous extending to the common femoral vein and femoral vein through the left popliteal vein. It looks like DVT was first discovered 07/01/2020 in the left leg greater saphenous vein to the left common femoral vein She states her left leg stays chronically bigger than the right now Review of Systems Narrative: General no fevers or chills Cardiovascular no chest pain or palpitations left leg stay swollen compared to the right but is improved from when she had the acute clots Respiratory no shortness of breath cough wheezing GI no nausea vomiting no melena no dysuria hematuria No history of strokes or seizures Medications/Allergies Home Medications ?Medication ?Instructions ?Recorded ?Confirmed ?Last Taken ?Type fluticasone propionate 50 1 spray intranasal DAILY 06/13/21 01/12/25 01/11/25 History mcg/actuation nasal spray,suspension (Flonase Allergy Relief) aspirin 81 mg tablet 325 mg PO DAILY 12/30/22 01/12/25 01/09/25 History carbamide peroxide 6.5 % ear drops 5 drp otic (ear) DAILY 4 days #15 03/17/24 01/12/25 Unknown Rx (Debrox) mL meloxicam 15 mg tablet 15 mg PO DAILY 90 days #90 tabs 03/17/24 01/12/25 01/02/25 Rx metoprolol succinate 100 mg 100 mg PO DAILY 90 days #90 tabs 03/17/24 01/12/25 01/11/25 Rx tablet,extended release 24 hr olmesartan 40 mg tablet 40 mg PO DAILY 90 days #90 tabs 03/17/24 01/12/25 01/12/25 Rx triamcinolone acetonide 0.5 % 1 applic topical BID #15 grams 03/17/24 01/12/25 01/12/25 Rx topical cream fexofenadine 180 mg tablet 180 mg PO DAILY 90 days #90 tabs 03/21/24 01/12/25 01/12/25 Rx (Dori Allergy) furosemide 20 mg tablet 20 mg PO DAILY 01/12/25 01/12/25 01/12/25 History montelukast 10 mg tablet 10 mg PO DAILY 01/12/25 01/12/25 01/12/25 History pantoprazole 40 mg tablet,delayed 40 mg PO DAILY 01/12/25 01/16/25 01/16/25 History release Allergies Allergy/AdvReac Type Severity Reaction Status Date / Time pseudoephedrine AdvReac Severe palpation Verified 01/16/25 11:24 Penicillins AdvReac Intermediate ALGY-Rash Verified 01/16/25 11:24 Current Medications Generic Name Dose Route Start Last Admin Trade Name Freq PRN Reason Stop Dose Admin Calcium Carbonate 1 each 01/16/25 18:00 01/16/25 17:12 Calcium Carb-Vit D 600mg/400unit 1 Tablet PO 1 each BID SARAH Administration Chlorhexidine Gluconate 30 ml 01/16/25 17:00 01/16/25 16:59 Chlorhexidine Gluconate 0.12% Btl 473 Ml MUCOUS MEM 30 ml QID SARAH Administration Hydromorphone HCl 0.5 mg 01/16/25 16:14 01/16/25 17:07 Hydromorphone 0.5 Mg/0.5 Ml Inj IVP 0.5 mg Q4H PRN Administration BREAKTHROUGH PAIN Lactated Ringer's 1,000 mls @ 100 mls/hr 01/16/25 16:14 01/16/25 17:06 Lactated Ringers IV 100 mls/hr .Q10H SARAH Administration Mupirocin 1 applic 01/16/25 18:00 01/16/25 17:01 Mupirocin Oint 22 Gm NASAL 01/21/25 17:59 1 applic BID SARAH Administration Polysaccharide Iron Complex 150 mg 01/16/25 18:00 01/16/25 17:12 Iron Polysaccharide Complex 150 Mg Capsule PO 150 mg BIDWM SARAH Administration Senna/Docusate Sodium 2 tab 01/16/25 18:00 01/16/25 17:12 Sennosides-Docusate Tablet PO 2 tab BID SARAH Administration PFSH Acute PFSH: Medical History Primary localized osteoarthritis of hips, bilateral Gastritis Gastric cardia ulcer Black stool Osteoarthropathy Hyperlipidemia, unspecified HTN, goal below 130/80 Surgical History History of left breast biopsy History of surgery on left wrist ganglion cyst History of back surgery Lumbar History of knee surgery Right History of dilation and curettage Family History Other Cancer Heart disease Hypertension Social History Smoking and tobacco/nicotine status: never used tobacco/nicotine Second hand smoke exposure: No Alcohol intake: never Substance/Drug Use: never Adopted: No Caregiver/support person: No Lives independently: Yes Household members: none Housing: House Marital status: / Current occupational status: retired Current occupational exposures/hazards: No Do you think of yourself as: Straight/Heterosexual Current gender identity: Female Vitals/I&O/Wt Last Vital Signs Temp 97.8 F 01/16/25 16:35 Pulse 54 L 01/16/25 17:00 Resp 15 01/16/25 17:00 BP 124/89 01/16/25 17:00 Pulse Ox 96 01/16/25 17:00 O2 Del Method Room Air 01/16/25 17:00 01/16/25 01/16/25 01/16/25 06:59 14:59 22:59 Intake Total 1150 / 1150 1000 / 2150 Output Total 325 / 325 Balance 1150 / 1150 675 / 1825 Weight last 48 hrs Weight 117.934 kg Physical Exam Narrative: General well-developed well-nourished female in no acute cardiopulmonary stress CV regular rate and rhythm Lungs clear to auscultation bilaterally Neck no carotid bruits Legs left side 1+ to 2 edema right side trace. Left leg is mildly enlarged compared to the right but I did not measure Urinary Catheter Management: Butler: Cath Placed During This Visit: yes Urinary Catheter Date of Insertion: 01/16/25 Urinary Catheter Time of Insertion: 12:55 Data 01/16/25 11:50 01/16/25 11:50 A&P Assessment and plan 1. Left femoral vein DVT: Dr. Tejada has a plan for resuming anticoagulation and will be primary to determine when that should be. I have visited the idea of removing the IVC filter which may not be needed given the chronicity of the left DVT at this time and collaterals. I think ultimately removal is not necessary and patient not particularly interested in such. There is some chance of the IVC filter clotting off but typically that is met with swelling and eventual collateralization. Patient voiced understand 2. HTN, goal below 130/80: Resume home blood pressure medications. Mild CKD PDMP PDMP Reviewed: Not Reviewed Coding Level of Care Code 38476 Diagnoses Left femoral vein DVT I82.412 HTN, goal below 130/80 I10 Time Spent (min) 40
--- NOTE | 2025-01-16 19:21 | PC.NURSE ---
Summary: Pt needed pain med one time since her arrival to ICU. Dilaudid admin, she said it made her Castaneda-castaneda . Ice pack on right hip, abductor pillow in place. SCDs , foot and leg , in place. Pt picked at her dinner but has drank plenty of liquids. LR infusing at 100 ml/hr as ordered. Family has been at bedside
[2025-01-16] MEDS: tranexamic acid 1,000 MG/100 ML PREMIX 600 MG IV (20:46)
[2025-01-16] MEDS: ondansetron 2 mg/ML SDV 2 mL 4 MG IVP (22:03)
[2025-01-17] VITALS (11 sets, daily range): BP systolic 92–146; BP diastolic 61–72; PULSE 61–82; RESP 16–18; TEMP 36.4–36.9; O2SAT 90–98
[2025-01-17] MEDS: HYDROmorphone 0.5 MG/0.5 ML INJ IVP (01:40)
[2025-01-17] MEDS: acetaminophen 1,000 MG/100 ML PIGGYBACK 400 MG IV ×2 (03:52→10:56)
[2025-01-17] MEDS: ceFAZolin 2,000 MG in sodium chloride 0.9% (plus) 50 ML 100 MG IV ×2 (03:53→12:08)
[2025-01-17 05:37] LABS: Hematocrit 28.4 % (36-47); Hemoglobin 9.00 g/dL (11.27-16.99); Mean Corpuscular HGB Conc 31.7 g/dL (30-55); Mean Corpuscular Hemoglobin 30.4 pg (27-33); Mean Corpuscular Volume 95.9 fl (85-98); Nucleated Red Blood Cells % 0 %; Platelet Count 186 10^3/cmm (157-399); Red Blood Count 2.96 10^6/uL (3.85-5.65); White Blood Count 9.39 10^3/uL (3.29-11.43)
[2025-01-17 06:01] LABS: Anion Gap 14.6 (5-19); Blood Urea Nitrogen 16 mg/dL (8-23); Calcium 8.9 mg/dL (8.5-10.5); Carbon Dioxide 22 mmol/L (22-29); Chloride 101 mmol/L (98-107); Creatinine Clr Calc Pharmacy 56.6632; Glucose 113 mg/dL (65-115); Osmolality Calculated 278 mOsm/kg (285-295); Potassium 4.6 mmol/L (3.5-5.1); Sodium 133 mmol/L (136-145)
[2025-01-17] MEDS: multivitamin therapeutic Tablet 1 TAB PO (08:36)
[2025-01-17] MEDS: metoprolol succinate ER (24 HR) 100 mg Tablet PO (08:36)
[2025-01-17] MEDS: chlorhexidine gluconate 0.12% Btl 473 mL 30 ML MUCOUS MEM ×4 (08:37→21:15)
[2025-01-17] MEDS: mupirocin oint 22 gm 1 APPLIC NASAL ×2 (08:37→16:58)
[2025-01-17] MEDS: sennosides-docusate Tablet 2 TAB PO ×2 (08:37→16:57)
[2025-01-17] MEDS: calcium carb-vit d 600mg/400unit 1 Tablet 1 EACH PO ×2 (08:37→16:57)
--- NOTE | 2025-01-17 09:07 | PC.CHAP ---
Pastoral Care Encounter/Spiritual Assessment Type of Contact [] Declined automatic brine mixer operator visit [] Patient/Family/Request visit [] Outpatient visit [] Follow-up visit [] Physician referral [] Code/Alert [x] Routine visit [] Staff referral [] Actively dying [] Patient sleeping [] Family support [] [] Out of room [] Palliative care [] [] Receiving care in room [] Pre-surgical visit [] Trauma [] Long length of stay [] ICU visit [] Other: Relational/Emotional Strength [x] Patient feels connected with others/family/visitors/staff [] Distress [] Loneliness/isolation [] Abandonment Spirituality of Patient [x] Person of Lucy [] Attends Holiness of their Lucy [x] Believes in Prayer [] Reads Bible or Orthodoxy materials [] There are Spiritual issues to be addressed Auditor Interventions [x] Prayer [x] Active listening [x] Non-anxious presence [x] Spiritual/emotional support [] Crisis/trauma care [] Spiritual counseling [] Bereavement support [] Provided bereavement packet [] Provided Bible/devotional materials [] Provided toy/stuffed animal, coloring book to patient or family member [] Provided Communion [] Anointing/[place] [] Salvation [x] Completed spiritual assessment [] Other: Impact on Illness or Injury [] Angry [] Fearful [] Anxious [] Often cries [] Exhaustion [] Unable to work [] Unable to attend sikh [] Unable to walk/stand [] Unable to read [] Unable to drive [] Unable to eat/drink [] Unable to sleep [] Unable to be with family [] Patient intubated [] Other: Summary Time spent with patient 5 min
--- NOTE | 2025-01-17 10:57 | PC.NURSE ---
Addendum entered by LISA Belcher 01/17/25 11:00: 5500ml urine output when fernando removed Original Note: 1055 when fernando removed, carlitos care provided
--- NOTE | 2025-01-17 11:42 | P.PN_ITS ---
Subjective 2 Subjective: 84-year-old female with histor y of leg DVT, hypertension obesity underwent right hip replacement yesterday. She has not been walking yet but has been up to a chair and was dizzy and hypotensive. Hematocrit dropped this morning not on anticoagulation. She has received IV fluids and blood pressure improved she denies nausea or chest pain Vitals/I&O/Wt Last Vital Signs Temp 97.5 F L 01/17/25 11:18 Pulse 68 01/17/25 11:18 Resp 17 01/17/25 11:18 BP 129/62 01/17/25 11:18 Pulse Ox 90 01/17/25 11:18 O2 Del Method Room Air 01/17/25 11:18 01/16/25 01/17/25 01/17/25 22:59 06:59 14:59 Intake Total 1250 / 2400 1001.667 / 3401.667 930 / 930 Output Total 325 / 325 Balance 925 / 2075 1001.667 / 3076.667 930 / 930 Weight last 48 hrs Weight 117.934 kg Physical Exam 2 Narrative: General well-developed well-nourished female in no acute cardiopulmonary stress CV regular rate and rhythm Lungs clear to auscultation bilaterally Neck no carotid bruits Legs left side 1+ to 2 edema right side trace. Left leg is mildly enlarged compared to the right but I did not measure Right leg with trace edema today right hip with mild swelling but no obvious bruising anteriorly. I did not remove the dressing Urinary Catheter Management: Butler: Cath Placed During This Visit: yes, but has since been removed by the nurse Reason for Continuing Indwelling Catheter: Decision to DC Catheter Urinary Catheter Date of Insertion: 01/16/25 Urinary Catheter Time of Insertion: 12:55 Date Urinary Catheter Removed: 01/17/25 Time Urinary Catheter Discontinued: 10:50 Data 01/17/25 05:21 01/17/25 05:21 A&P Assessment and plan 1. Left femoral vein DVT: Holding anticoagulation due to drop in hematocrit. Will give this some time to stop losing blood into the hip and then resume anticoagulation at a delayed time. 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 HTN, goal below 130/80: Metoprolol, losartan and furosemide held for now. May need to resume at half dose if blood pressure elevated later and even PDMP PDMP Reviewed: Not Reviewed Attestations 2 Medical Necessity Statement*: Patient remains in the hospital for physical therapy and monitoring blood pressure and expected to require additional 1-2 midnights Coding Level of Care Code 23645 Diagnoses Left femoral vein DVT I82.412 HTN, goal below 130/80 I10 Time Spent (min) 35
[2025-01-17] MEDS: oxyCODONE 5 mg IR Tab/Cap PO (12:08)
[2025-01-17] MEDS: ondansetron 2 mg/ML SDV 2 mL 4 MG IVP (13:20)
[2025-01-17 15:38] LABS: Hematocrit 27.9 % (36-47); Hemoglobin 8.90 g/dL (11.27-16.99); Mean Corpuscular HGB Conc 31.9 g/dL (30-55); Mean Corpuscular Hemoglobin 30.8 pg (27-33); Mean Corpuscular Volume 96.5 fl (85-98); Nucleated Red Blood Cells % 0 %; Platelet Count 179 10^3/cmm (157-399); Red Blood Count 2.89 10^6/uL (3.85-5.65); White Blood Count 11.49 10^3/uL (3.29-11.43)
--- NOTE | 2025-01-17 17:01 | P.PN_ITS ---
Subjective 2 Subjective: Patient seen and examined today she is recovering well she is on her second round of try to get up with therapy as she did have some hypotension/orthostatics earlier today. Her second session of therapy she did did better and was able to go to the bathroom but she did have some emesis episode according to therapist at this point in time recommend we continue to observe patient for an additional night stay. Patient and family are at bedside. Patient states she had a rough night with pain but that has improved and is more controlled with medications today. Patient was reassured her postoperative pain normal/common. Vitals/I&O/Wt Last Vital Signs Temp 98.5 F 01/17/25 15:27 Pulse 67 01/17/25 15:27 Resp 16 01/17/25 15:27 BP 117/67 01/17/25 15:27 Pulse Ox 93 01/17/25 15:27 O2 Del Method Room Air 01/17/25 15:27 01/17/25 01/17/25 01/17/25 06:59 14:59 22:59 Intake Total 1001.667 / 3401.667 1080 / 1080 Balance 1001.667 / 3076.667 1080 / 1080 Weight last 48 hrs Weight 260 lb Physical Exam 2 Narrative: Right hip examination: Dressing on in place, clean dry and intact. Mariann incisional VAC dressing on in place with good seal no evidence of saturation, Patient has normal postoperative swelling and ecchymosis and tenderness to palpation to the right hip. compartments are soft compressible,'s calf soft and nontender. Sensations intact to light touch distally. Distal pulses are palpable. Patient is able to wiggle toes as well as plantarflex and dorsiflex ankle. Urinary Catheter Management: Butler: Cath Placed During This Visit: yes, but has since been removed by the nurse Reason for Continuing Indwelling Catheter: Decision to DC Catheter Urinary Catheter Date of Insertion: 01/16/25 Urinary Catheter Time of Insertion: 12:55 Date Urinary Catheter Removed: 01/17/25 Time Urinary Catheter Discontinued: 10:50 Data 01/17/25 14:55 01/17/25 05:21 Xray Ortho: Radiologist's impression: Ordering Provider/Ordering MD: Jeff Tejada Date of Service: 01/16/25 Procedure(s): XR hip RT 2-3V wo/w pel* [id number] Accession Number(s): [id number] Report Number: [id number] PROCEDURE INFORMATION: Exam: XR Right Hip Exam date and time: 01/16/2025 3:52 PM Age: 84 years old Clinical indication: Device placement; Other: Daiana, prior surgery; Surgery date: Post-operative (0-2 days); Additional info: Post op daiana, do in pacu TECHNIQUE: Imaging protocol: Radiologic exam of the right hip. Views: 1 view hip with pelvis when performed. COMPARISON: [place] [id number] 01/03/2025 3:14 PM FINDINGS: Bones/joints: A right hip prosthesis is well seated and well aligned. Soft tissues: Soft tissue air noted. XR/XR hip RT 2-3V wo/w pel* [id number] IMPRESSION: Intact postoperative hip prosthesis A&P Assessment and plan 1. S/P total right hip arthroplasty: Plan: POD #1 right DAIANA?Sal robotic assisted posterior approach Weight-bear as tolerated to operative lower extremity Ice as needed for pain and swelling Posterior hip precautions pain control PT/OT Resume Diet Postoperative antibiotics Dressing changes as needed AM labs reviewed?hemoglobin down to 9.0?talked with hospitalist will hold on patient's aspirin for DVT prophylaxis at this time, recommend SCDs and mobilization as patient can tolerate Postoperative x-rays reviewed Internal medicine consulted for medical management appreciate their assistance Patient at this point in time has gotten up with therapy but has had some orthostatic hypotension as well as an emesis episode at this point in time she has not been able to complete therapy and safely mobilize for discharging home today. Her hemoglobin did drop down to9.0 on recheck is 8.9 at this point time we will hold off on the aspirin after I talked about this with the hospitalist to prevent any further worsening anemia we will hold on the anticoagulant today. Will recommend observation additional night stay and reevaluate patient tomorrow to see how she is progressing. Goals of hopefully discharge home with home health care at that time. Patient and family understand agree with current plan. Questions answered. PDMP PDMP Reviewed: Not Reviewed Attestations 2 Medical Necessity Statement*: Status post right total hip arthroplasty requiring further therapy as patient had hypotension and emesis episodes today unable to complete therapy for safe discharge home will continue to monitor blood pressure, appreciate hospitalist recommendations, hemoglobin dropped Coding Level of Care Code Acute Code for Chg Fwd Diagnoses S/P total right hip arthroplasty Z96.641 Time Spent (min) 15
[2025-01-18] VITALS (7 sets, daily range): BP systolic 120–151; BP diastolic 44–77; PULSE 77–86; RESP 16–19; TEMP 36.4–37.3; O2SAT 91–97
[2025-01-18 06:04] LABS: Hematocrit 25.8 % (36-47); Hemoglobin 8.30 g/dL (11.27-16.99); Mean Corpuscular HGB Conc 32.2 g/dL (30-55); Mean Corpuscular Hemoglobin 31.1 pg (27-33); Mean Corpuscular Volume 96.6 fl (85-98); Nucleated Red Blood Cells % 0 %; Platelet Count 154 10^3/cmm (157-399); Red Blood Count 2.67 10^6/uL (3.85-5.65); White Blood Count 9.59 10^3/uL (3.29-11.43)
[2025-01-18 06:27] LABS: Anion Gap 15.9 (5-19); Blood Urea Nitrogen 12 mg/dL (8-23); Calcium 9.1 mg/dL (8.5-10.5); Carbon Dioxide 22 mmol/L (22-29); Chloride 97 mmol/L (98-107); Creatinine Clr Calc Pharmacy 62.9591; Glucose 121 mg/dL (65-115); Osmolality Calculated 273 mOsm/kg (285-295); Potassium 3.9 mmol/L (3.5-5.1); Sodium 131 mmol/L (136-145)
[2025-01-18] MEDS: ondansetron 2 mg/ML SDV 2 mL 4 MG IVP (06:40)
[2025-01-18] MEDS: sennosides-docusate Tablet 2 TAB PO (08:55)
[2025-01-18] MEDS: multivitamin therapeutic Tablet 1 TAB PO (08:55)
[2025-01-18] MEDS: calcium carb-vit d 600mg/400unit 1 Tablet 1 EACH PO (08:55)
[2025-01-18] MEDS: chlorhexidine gluconate 0.12% Btl 473 mL 30 ML MUCOUS MEM (08:57)
[2025-01-18] MEDS: mupirocin oint 22 gm 1 APPLIC NASAL (08:57)
--- NOTE | 2025-01-18 13:29 | P.PN_ITS ---
Subjective 2 Subjective: Patient states she was up every 2 hours voiding urine due to IV fluid and was not dizzy. She feels fine and stable ambulating. She is companied by her daughter Vitals/I&O/Wt Last Vital Signs Temp 97.6 F 01/18/25 11:39 Pulse 84 01/18/25 11:39 Resp 17 01/18/25 11:39 BP 151/77 01/18/25 11:39 Pulse Ox 97 01/18/25 11:39 O2 Del Method Room Air 01/18/25 11:25 O2 Flow Rate 1 01/18/25 04:00 01/17/25 01/18/25 01/18/25 22:59 06:59 14:59 Intake Total 999 / 2079 1000 / 1000 Balance 999 / 999 Physical Exam 2 Narrative: General well-developed well-nourished female in no acute cardiopulmonary stress CV regular rate and rhythm Lungs clear to auscultation bilaterally Neck no carotid bruits Legs bilateral trace to 1+ pretibial edema equal bilaterally today Urinary Catheter Management: Butler: Cath Placed During This Visit: yes, but has since been removed by the nurse Reason for Continuing Indwelling Catheter: Decision to DC Catheter Urinary Catheter Date of Insertion: 01/16/25 Urinary Catheter Time of Insertion: 12:55 Date Urinary Catheter Removed: 01/17/25 Time Urinary Catheter Discontinued: 10:50 Data 01/18/25 05:57 01/18/25 05:57 A&P Assessment and plan 1. Left femoral vein DVT: Okay to resume resume aspirin today. On actual anticoagulation I would start that tomorrow if low-dose DVT prophylaxis anticoagulation is agreed to by Dr. Tejada 2. HTN, goal below 130/80: Resume medications at half dose today and full dose tomorrow PDMP PDMP Reviewed: Not Reviewed Attestations 2 Medical Necessity Statement*: Patient is ready for discharge Coding Level of Care Code 73841 Diagnoses Left femoral vein DVT I82.412 HTN, goal below 130/80 I10 Time Spent (min) 15
--- NOTE | 2025-01-18 19:09 | P.DS_ITS ---
Discharge Providers Date of Admission: 01/16/25 15:57 Date of Discharge: January 18, 2025 Attending Provider at Admission: Jeff Tejada DO Attending Provider at Discharge: Jeff Tejada DO Consults: Dr. Goldsmith asked hospitalist Primary Care Provider: Archana Varela RISK ASSESSMENT ANALYST Diagnoses at Discharge Discharge Diagnosis 1. S/P total right hip arthroplasty: 2. Left femoral vein DVT: 3. 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 Once cleared by anesthesia for surgery subsequently was taken back to the operative suite underwent anesthesia per the anesthesia department and then underwent [right] total hip arthroplasty with Sal robotic assistance posterior approach without any complications. Patient was then subsequently taken back to PACU in stable condition recovering well. Once recovered, patient was then subsequently admitted to the floor postoperatively. Internal medicine was consulted for medical management assistance. Patient weightbearing as tolerated to the right lower extremity, posterior hip precautions. PT/OT. Pain control. DVT prophylaxis. Postoperative antibiotics. dressing was change as needed. Internal medicine was on board and appreciate their medical management and assistance. Patient did have some orthostatic hypotension during the first day postoperatively as well as trending downward hemoglobin as result she stayed no additional night stay progressed appropriately with therapy. She was seen evaluated by the hospitalist who made further recommendations pertaining to her DVT prophylaxis please refer to their daily progress notes and consultation notes for details on their discussion ultimately patient's covered from bleeding ulcer and through their discussion recommended patient going home on Xarelto for 35 days postoperatively and this was confirmed to be unsafe with preoperative clinic team as well. Patient prior to discharge be set up of having a follow-up appointment with her primary care provider. Pt was determined on postoperative day [2 ] the patient was stable for discharge from orthopedic as well as internal medicine standpoint. Patient's labs were monitored daily. Patient will receive appropriate pain medication as well as DVT prophylaxis postoperatively. Appropriate discharge instructions as well. Patient was then discharged in stable condition. Patient will discharge home. Pt will follow-up with Orthopedics in the office in 2 weeks. Patient understands and agrees with current plan. All questions answered. Understands there is any issues or concerns and contact the office. Physical Exam Narrative: Right hip examination: Dressing on in place, clean dry and intact. Mariann incisional VAC dressing with good seal no evidence of saturation. Patient has normal postoperative swelling and tenderness to palpation to the right hip. Compartments are soft compressible,'s calf soft and nontender. Able to tolerate gentle hip range of motion with no significant pain or discomfort sensations intact to light touch distally. Distal pulses are palpable. Patient is able to wiggle toes as well as plantarflex and dorsiflex ankle. Urinary Catheter Management: Butler: Cath Placed During This Visit: yes, but has since been removed by the nurse Reason for Continuing Indwelling Catheter: Decision to DC Catheter Urinary Catheter Date of Insertion: 01/16/25 Urinary Catheter Time of Insertion: 12:55 Date Urinary Catheter Removed: 01/17/25 Time Urinary Catheter Discontinued: 10:50 Discharge Data Studies Completed and Pending Completed Studies During Hospitalization Category Date Time Status XR hip RT 2-3V wo/w pel* [id number] Routine Exams 01/16/25 15:50 Completed Radiology Impressions Hip/Pelvis X-Ray 01/16/25 15:50 IMPRESSION: Intact postoperative hip prosthesis Laboratory Results WBC 9.59 10^3/uL (3.29-11.43) 01/18/25 05:57 RBC 2.67 10^6/uL (3.85-5.65) L 01/18/25 05:57 Hgb 8.30 g/dL (11.27-16.99) L 01/18/25 05:57 Hct 25.8 % (36-47) L 01/18/25 05:57 MCV 96.6 fl (85-98) 01/18/25 05:57 MCH 31.1 pg (27-33) 01/18/25 05:57 MCHC 32.2 g/dL (30-55) 01/18/25 05:57 RDW 12.3 % (12.1-15.1) 01/18/25 05:57 Plt Count 154 10^3/cmm (157-399) L 01/18/25 05:57 MPV 10.7 fL (7.4-10.4) H 01/18/25 05:57 Neut % (Auto) 75.8 % 01/18/25 05:57 Lymph % (Auto) 13.6 % 01/18/25 05:57 Stark % (Auto) 9.1 % 01/18/25 05:57 Eos % (Auto) 0.5 % 01/18/25 05:57 Baso % (Auto) 0.4 % 01/18/25 05:57 Neut # (Auto) 7.27 10^3/uL (1.8-7.7) 01/18/25 05:57 Lymph # (Auto) 1.3 10^3/uL (0.8-4.8) 01/18/25 05:57 Stark # (Auto) 0.9 10^3/uL (0.2-0.9) 01/18/25 05:57 Eos # (Auto) 0.1 10^3/uL (0.0-0.8) 01/18/25 05:57 Baso # (Auto) 0.0 10^3/uL (0.0-0.1) 01/18/25 05:57 Nucleated RBC % (auto) 0 % 01/18/25 05:57 Nucleated RBCs # 0.0 /100WBC 01/18/25 05:57 Sodium 131 mmol/L (136-145) L 01/18/25 05:57 Potassium 3.9 mmol/L (3.5-5.1) 01/18/25 05:57 Chloride 97 mmol/L (98-107) L 01/18/25 05:57 Carbon Dioxide 22 mmol/L (22-29) 01/18/25 05:57 Anion Gap 15.9 (5-19) 01/18/25 05:57 BUN 12 mg/dL (8-23) 01/18/25 05:57 Creatinine 0.9 mg/dL (0.5-0.9) 01/18/25 05:57 GFR Calculation Not Reportable 01/18/25 05:57 Glucose 121 mg/dL (65-115) H 01/18/25 05:57 Calculated Osmolality 273 mOsm/kg (285-295) L 01/18/25 05:57 Calcium 9.1 mg/dL (8.5-10.5) 01/18/25 05:57 Blood Type O Positive 01/16/25 11:50 Rho(D) Type Rh positive 01/16/25 11:50 Antibody Screen Negative 01/16/25 11:50 Vitals Last Vital Signs Temp 97.6 F 01/18/25 14:13 Pulse 84 01/18/25 14:13 Resp 17 01/18/25 14:13 BP 151/77 01/18/25 14:13 Pulse Ox 97 01/18/25 14:13 O2 Del Method Room Air 01/18/25 11:25 O2 Flow Rate 1 01/18/25 04:00 Discharge Plan Discharge Patient Disposition: Home Health Service Condition: Stable Prescriptions: New oxycodone 5 mg tablet 5 mg PO Q6H PRN (Reason: pain postop) 7 Days Qty: 28 0RF Xarelto 10 mg tablet 10 mg PO DAILY 35 Days Qty: 35 0RF Continued fluticasone propionate [Flonase Allergy Relief] 50 mcg/actuation spray,suspension 1 spray intranasal DAILY Rx Instructions: administer into each nostril metoprolol succinate 100 mg tablet extended release 24 hr 100 mg PO DAILY 90 Days Qty: 90 3RF olmesartan 40 mg tablet 40 mg PO DAILY 90 Days Qty: 90 3RF triamcinolone acetonide 0.5 % cream 1 applic topical BID Qty: 15 3RF Debrox 6.5 % drops 5 drp otic (ear) DAILY 4 Days Qty: 15 0RF fexofenadine [Dori Allergy] 180 mg tablet 180 mg PO DAILY 90 Days Qty: 90 1RF pantoprazole 40 mg tablet,delayed release (DR/EC) 40 mg PO DAILY Rx Instructions: TAKE ONE TABLET BY MOUTH DAILY montelukast 10 mg tablet 10 mg PO DAILY Rx Instructions: TAKE ONE TABLET BY MOUTH AT BEDTIME furosemide 20 mg tablet 20 mg PO DAILY Rx Instructions: TAKE ONE TABLET BY MOUTH EVERY MORNING Held meloxicam 15 mg tablet 15 mg PO DAILY 90 Days Qty: 90 3RF Hold Instructions: Resume on 02/01/25. aspirin 81 mg tablet 325 mg PO DAILY Hold Instructions: Resume on 01/19/25. Resume tomorrow [employer] OK for DC: Orthopedics Discharge Order = DC NOW: Discharge Order (Routine); Ordered 01/18/25 Ordered By: Jeff Tejada Other Ambulatory Orders: DME: Walker (Order) Location: None Selected Ordered By: Jeff Tejada Complete Blood Count w/Auto (Routine) Timeframe: 2 Days Location: Determined by Patient Ordered By: Jeff Currituck Referrals: [facility] ([facility]) [Outside] Referral Note: Home Health will follow up with you at home on Saturday 01/20. Archana Varela FNP [Primary Care Provider, Nurse Practitioner] - 01/31/25 11:30 am Referral Note: Appointment in [facility] Jeff Tejada DO [Physician, Orthopedics] - 01/31/25 1:30 pm Discharge Diet: Regular Discharge Activity: Limit activity as instructed Patient Instructions: Acute Wound Care (DC), Total Hip Replacement (GEN), Opioid Safety, Post Anesthesia Care, Patient Portal & Harshal Instructions Activity Restrictions/Additional Instructions: Orthopedic discharge instructions: Patient to follow-up with primary care provider in 3 to 7 days goal of seeing by the end of this week if possible for recheck on labs. Larger dressing-- Mariann Dressing--Keep dressing on and dry. After 3 days you can remove some of the dressing and shower. disconnect battery pack when showering. Mariann dressing will stay on until follow up appt in 2 weeks. The battery pack for the dressing will at 5-7 days. Battery pack can be removed and discarded once batteries . Small dressing--Leave Silverlon bandage dressing on for 7 days after that may remove, rinse incision with warm soapy water/shower pat dry keep clean dry and intact and redress with a clean dry dressing. Patient may weight-bear as tolerated to the operative lower extremity Posterior hip precautions (avoid excess excessive hip flexion past 90 degrees and internal rotation) Take DVT prophylaxis (Aspirin) as prescribed?start tomorrow per hospitalist recommendations Take pain medication as prescribed Take antinausea medication as needed Supplement with Citracal vitamin D for bone health and healing Ice as needed for pain and swelling No baths or soap May supplement for pain with Tylenol [id number] as needed(1000 mg every 8 hours-do not exceed more than 3000mg in 24-hour period) Follow-up in the orthopedic office in 2 weeks from date of surgery Contact the office for any questions or concerns per (fevers, increased drainage or redness around the incision site etc.) additional from Dr. Hampton Continue pantoprazole daily. On 01/18/2025 start Xarelto 10 mg daily for 35 days to prevent clot in your right leg or up to your vena cava filter. Discharge Attestations Time Spent in Discharge Care*: greater than 30 min Quality Metrics Clinical Quality Measures [ No reported AMI, CVA or VTE this stay] Coding Level of Care Code Acute Code for Chg Fwd Diagnoses S/P total right hip arthroplasty Z96.641 Left femoral vein DVT I82.412 HTN, goal below 130/80 I10 Time Spent (min) 35
== END 2025-01-18 15:00 | disposition home health service (06) ==
LOC: ICU 15:57 → MEDSURG 20:26
PROVIDERS: Internal Medicine; Physician Assistant; Admitting Provider Student in an Organized Health Care Education/Training Program; PCP Nurse Practitioner Family; Visit Provider Student in an Organized Health Care Education/Training Program
PROC: 8E0Y0CZ Robotic Assisted Procedure of Lower Extremity, Open Approach (ICD-10-PCS; CPT 27130; principal; 2025-01-16 12:00)
DX: M16.11 Unilateral primary osteoarthritis, right hip (principal); I82.412 Acute embolism and thrombosis of left femoral vein; Z79.82 Long term (current) use of aspirin; K21.9 Gastro-esophageal reflux disease without esophagitis; E78.5 Hyperlipidemia, unspecified; I12.9 Hypertensive chronic kidney disease with stage 1 through stage 4 chronic kidney disease, or unspecified chronic kidney disease; N18.30 Chronic kidney disease, stage 3 unspecified
CPT/HCPCS: 27130; 20985; 36415; 51702; 73502; 80048; 85025; 86850; 86900; 97110; 97116; 97162; 97167; 97530; 97535; C1776; G0378; J0131; J0690; J1171; J2405; J2704; J3010; J3373; J7030; J7120; J9999

== ENCOUNTER → 2025-01-31 13:35 | Outpatient (BNVA) | payer MEDICARE, SELFPAY | PROVIDERS: PCP Nurse Practitioner Family; Visit Provider Physician Assistant | DX: Z96.641 Presence of right artificial hip joint (principal) | CPT/HCPCS: 73502; 99024 ==

== ENCOUNTER → 2025-03-14 15:31 | Outpatient (BNVA) | payer MEDICARE, SELFPAY | PROVIDERS: PCP Nurse Practitioner Family; Visit Provider Student in an Organized Health Care Education/Training Program | DX: Z96.641 Presence of right artificial hip joint (principal) | CPT/HCPCS: 73502; 99213 ==

== ENCOUNTER 2025-04-21 08:28 | Outpatient (CLI) | payer MEDICARE, SELFPAY ==
--- NOTE | 2025-04-21 08:46 | USCV_ITS ---
Monie Newton Age: 84 Gender: F : 1940 Exam Date: 04/21/2025 09:03 Ordering Phys: Anneliese Thomas Technologist: Thai Benjamin Exam Location: [facility] Indication: hypertension BP: 139 / 81 HR: 66 Rhythm: Sinus Technical Quality: Adequate MEASUREMENTS (Male / Female) Normal Values 2D ECHO LV Diastolic Diameter PLAX 5.2 cm 4.2 - 5.9 / 3.9 - 5.3 cm IVS Diastolic Thickness 0.8 cm 0.6 - 1.0 / 0.6 - 0.9 cm IVS Systolic Thickness 1.3 cm LVPW Diastolic Thickness 0.7 cm 0.6 - 1.0 / 0.6 - 0.9 cm LVPW Systolic Thickness 1.3 cm LVOT Diameter 2.0 cm LV Ejection Fraction 2D Teich 51.3 % LV Ejection Fraction MOD 4C 66.9 % LV Ejection Fraction MOD 2C 67.0 % LV Ejection Fraction 2C AL 66.0 % LA Diameter 3.3 cm RA Systolic Volume 4C AL 32.4 ml RA Systolic Volume 4C MOD 29.6 ml LA Sys Volume AL 52.1 cm cubed LA Sys Volume Index AL 24.6 cm cubed/m squared Aorta at Sinotubular Diameter 2.5 cm IVC Diameter 1.5 cm M-MODE LA Ao Ratio MM 1.2 AV Cusp Separation MM 1.5 cm DOPPLER AV Peak Velocity 159.0 cm/s LVOT Peak Velocity 79.0 cm/s AV Area Cont Eq vti 1.6 cm squared AV Area Cont Eq pk 1.6 cm squared MV Peak Velocity 100.0 cm/s MV Area PHT 4.5 cm squared Mitral E to A Ratio 1.0 PV Peak Velocity 108.0 cm/s RV Ejection Time 0.3 s FINDINGS Left Ventricle Normal left ventricular size, systolic function and wall thickness with no regional wall motion abnormality. Left ventricular ejection fraction is 66%. Normal left ventricular diastolic function. Right Ventricle Normal right ventricular size and systolic function. Right Atrium Normal right atrial size. Left Atrium Normal left atrial size. IA Septum Normal appearance of the interatrial septum. Mitral Valve Normal mitral valve structure. No mitral valve stenosis or regurgitation. Aortic Valve Normal aortic valve structure. No aortic valve stenosis or regurgitation. Tricuspid Valve Normal tricuspid valve structure. No tricuspid valve stenosis. Trace tricuspid valve regurgitation. Normal pulmonary pressure, RVSP 39 mmHg. Pulmonic Valve Normal pulmonic valve structure. No pulmonic valve stenosis or regurgitation. Pericardium No pericardial effusion. Aorta Normal diameter of the aortic root and ascending thoracic aorta. IVC Normal IVC diameter. CONCLUSIONS Normal left ventricular size, systolic function and wall thickness with ejection fraction of 66%. Normal right ventricular size and systolic function. Trace tricuspid valve regurgitation. Normal pulmonary pressure, RVSP 39 mmHg. Pankaj Mccabe MD, FACC (Electronically Signed) Final Date: 22 April 2025 19:39 S
== END 2025-04-21 08:29 | disposition home or self-care (01) ==
LOC: RAD 08:30
PROVIDERS: PCP Nurse Practitioner Family; Visit Provider Nurse Practitioner Family
DX: R06.02 Shortness of breath (principal); I10 Essential (primary) hypertension; I36.1 Nonrheumatic tricuspid (valve) insufficiency
CPT/HCPCS: 93306

== ENCOUNTER 2025-05-02 10:17 | Outpatient (CLI) | payer MEDICARE, SELFPAY ==
--- NOTE | 2025-05-02 | ECG_ITS ---
[facility] Test Date: 2025-05-02 Pat Name: Monie Newton Department: Room: Gender: Female Forepart Rounder: : 1940 Requested By: Anneliese Thomas Order Number: [id number] Regalado MD: Pankaj Mccabe M.D. Interpretive Statements Procedure: A total of 0.4 mg of Lexiscan was infused over 20 seconds. The stress phase was continued for a total of 5 minutes. Sestamibi was injected 20 seconds after the Lexiscan infusion. Findings: Patient's resting blood pressure was 155/89 with a heart rate of 72 bpm. Resting EKG showed normal sinus rhythm with possible old anterior infarction. The stress EKG showed no ST-T wave abnormalities. Patient's heart rate increased to a maximum of 98 bpm after Lexiscan injection. The lowest blood pressure after Lexiscan injection was 102 over 61 bpm. In recovery the patient's blood pressure was 126/69 with a heart rate of 83 bpm. Conclusion: 1. Normal EKG response to Lexiscan infusion 2. No Lexiscan induced chest pain or cardiac arrhythmia. 3. Normal blood pressure and heart rate response. 4. Nuclear myocardial perfusion scan pending; see separate report. Electronically Signed On 05-02-2025 18:24:57 CDT by Pankaj Mccabe M.D. [email or web address]
[2025-05-02 10:36] VITALS: BMI 47.0
--- NOTE | 2025-05-02 10:39 | NMCV_ITS ---
NM ericka perf SPECT r/s* [id number] Monie Newton Age: 84 Gender: F : 1940 Exam Date: 05/02/2025 11:23 Ordering Phys: Anneliese Thomas Technologist: SANDI Low Exam [facility]: [facility] Indications: cp STRESS TEST Please see separate stress test report in [facility] for full findings IMAGE PROTOCOL Rest/Stress 1 Lexiscan Day Radiopharmaceutical Dose (mCi) Administration Site Administered by Rest: Tc-99m 10.8 IV Arleen Shoemaker, ACADEMIC INTERVENTIONIST Sestamibi Stress:Tc-99m 32.5 IV Arleen Hopegle, ACADEMIC INTERVENTIONIST Sestamibi Rest: 02-May-2025 60 Discovery 630 Stress: 02-May-2025 30 Discovery 630 0.4mg Lexiscan. Supine position only as patient was unable to lay prone. SPECT RESULTS Technical Quality: Good Raw Data Analysis: Normal Image Corrections: No attenuation or motion correction applied Summed Stress Score: 0 Summed Rest Score: 0 Summed Difference Score: 0 PERFUSION FINDINGS SPECT images demonstrate homogeneous tracer distribution throughout the myocardium. FUNCTIONAL RESULTS (calculated via Gated SPECT) Stress Image LV EF (%): 78 Stress EDV (mL):74 TID: 0.9 Stress ESV (mL):16 FUNCTIONAL FINDINGS: There is normal left ventricular systolic function. IMPRESSIONS Myocardial perfusion imaging is normal. There is normal left ventricular systolic function, EF 78%. Pankaj Mccabe MD, FACC (Electronically Signed) Final Date: 02 May 2025 17:59 S
[2025-05-02 12:32] VITALS: BP 126/69; PULSE 77
== END 2025-05-02 10:18 | disposition home or self-care (01) ==
LOC: CDL 10:19
PROVIDERS: PCP Nurse Practitioner Family; Visit Provider Nurse Practitioner Family
DX: R00.2 Palpitations (principal); R06.02 Shortness of breath; I10 Essential (primary) hypertension
CPT/HCPCS: 36415; 78452; 93017; 96374; A9500; J2785

== ENCOUNTER → 2025-06-13 09:05 | Outpatient (BNVA) | payer MEDICARE, SELFPAY | PROVIDERS: PCP Nurse Practitioner Family; Visit Provider Student in an Organized Health Care Education/Training Program | DX: Z96.641 Presence of right artificial hip joint (principal); M54.50 Low back pain, unspecified | CPT/HCPCS: 73502; 99213 ==

== ENCOUNTER 2025-06-30 13:33 | Outpatient (CLI) | payer MEDICARE, SELFPAY ==
--- NOTE | 2025-06-30 13:30 | CT_ITS ---
WS: [id number] CT RIGHT HIP, NONCONTRAST HISTORY: s/p right total hip arthroplasty/rule out implant issues Technique: All CT scans at [facility] use at least one of these dose optimization techniques: automated exposure control; mA and/or kV adjustment per patient size (includes targeted exams where dose is matched to clinical indication); or iterative reconstruction. DLP: 777.17 mGy.cm COMPARISON: Radiograph 06/13/2025 Patient is status post RIGHT hip arthroplasty. There is some artifact from the arthroplasty device. No lucencies surrounding the stem or acetabular component. By CT the acetabular and femoral head component are normally aligned. There is no asymmetry. No fracture of the tip of the prosthesis. Normal appearance of the adjacent soft tissues. There is no mass or fluid collection or edema. No significant muscle atrophy. CT/CT hip RT wo con* [id number] IMPRESSION: Status post RIGHT hip arthroplasty appears in good position and alignment. No l ucency surrounding the hardware. No fracture.
== END 2025-06-30 13:34 | disposition home or self-care (01) ==
LOC: RAD 13:33
PROVIDERS: PCP Nurse Practitioner Family; Visit Provider Student in an Organized Health Care Education/Training Program
DX: Z96.641 Presence of right artificial hip joint (principal)
CPT/HCPCS: 73700